=== PATIENT | female | born 1935 | race Caucasian/White ===

== ENCOUNTER 2017-04-14 15:15 | Emergency (ER) | payer OTHER, BC ==
--- NOTE | 2017-04-14 15:32 | EDPHY ---
H & P Stated Complaint: n/v decreased oral intake /dehydration intermittent x months Time Seen by Provider: 04/14/17 15:30 HPI/ROS: CHIEF COMPLAINT: Sent to ED for mild dehydration HISTORY OF PRESENT ILLNESS: The patient presents to the emergency department at the request of her primary care provider for evaluation of mild dehydration. The patient has had symptoms of intermittent nausea and decreased appetite for the past several months. She has been somewhat resistant to increasing her fluid intake secondary to complaints of ongoing nausea. The patient has had problems with insomnia as well. She recently was started on trazodone. The patient denies any history of fall, trauma, headache, chest pain, difficulty breathing or other concerns. The patient denies additional acute complaints of dysuria, cough or diarrhea REVIEW OF SYSTEMS: A comprehensive 10 point review of systems is otherwise negative aside from elements mentioned in the history of present illness. Source: Patient Exam Limitations: No limitations - Personal History Current Tetanus/Diphtheria Vaccine: Yes - Medical/Surgical History Hx Asthma: No Hx Chronic Respiratory Disease: No Hx Cardiac Disease: No Hx Renal Disease: No Hx Cirrhosis: No Hx Alcoholism: No Hx HIV/AIDS: No Hx Splenectomy or Spleen Trauma: No Other PMH: anxiety/depression - Social History Smoking Status: Never smoked - Physical Exam Exam: General Appearance: Elderly female, no acute distress Eyes: Pupils equal and round no pallor or injection ENT, Mouth: Dry mucous membranes Respiratory: There are no retractions, lungs are clear to auscultation Cardiovascular: Regular rate and rhythm Gastrointestinal: Abdomen is soft and nontender, no masses, bowel sounds normal Neurological: A&O, normal motor function, normal sensory exam, normal cranial nerves Skin: Warm and dry, no rashes Musculoskeletal: Slight kyphosis Extremities: symmetrical, full range of motion Constitutional: Initial Vital Signs Temperature (C) 36.6 C 04/14/17 15:26 Heart Rate 98 04/14/17 15:26 Respiratory Rate 18 04/14/17 15:26 Blood Pressure 149/99 H 04/14/17 15:26 O2 Sat (%) 92 04/14/17 15:26 O2 Delivery Mode Room Air Allergies/Adverse Reactions: No Known Allergies Allergy (Verified 04/14/17 15:24) Home Medications: Medication Instructions Recorded Aspirin 81mg (*) 04/14/17 B12/Levomefolate Calcium/B-6 12/05/17 Zoloft 100mg (*) 04/14/17 traZODone 04/14/17 Medical Decision Making ED Course/Re-evaluation: The patient presents the ED with nausea, decreased appetite and signs of moderate dehydration. She had an IV established. She received 2 L of normal saline. The patient is observed to have a normal neurologic and abdominal exam. The patient does have evidence of urinary tract infection. She received 1 g of IV ceftriaxone. The patient was re-evaluated at 6:00 p.m. and is currently feeling much better. She is tolerating p.o. without recurrent vomiting. The patient would like to be discharged home. She will be given a prescription for Keflex 500mg tid. Differential Diagnosis: Differential diagnosis considered includes UTI, dehydration, metabolic abnormality, anemia - Data Points Laboratory Results: Laboratory Results 04/14/17 16:00 04/14/17 16:00 04/14/17 04/14/17 04/14/17 16:49 16:00 16:00 WBC 5.29 10^3/uL 10^3/uL (3.80-9.50) RBC 4.76 10^6/uL 10^6/uL (4.18-5.33) Hgb 16.0 g/dL g/dL (12.6-16.3) Hct 45.0 % % (38.0-47.0) MCV 94.5 fL fL (81.5-99.8) MCH 33.6 pg pg (27.9-34.1) MCHC 35.6 g/dL g/dL (32.4-36.7) RDW 13.7 % % (11.5-15.2) Plt Count 234 10^3/uL 10^3/uL (150-400) MPV 8.1 fL L fL (8.7-11.7) Neut % (Auto) 62.4 % % (39.3-74.2) Lymph % (Auto) 23.6 % % (15.0-45.0) [place] % (Auto) 10.4 % % (4.5-13.0) Eos % (Auto) 1.9 % % (0.6-7.6) Baso % (Auto) 1.3 % % (0.3-1.7) Nucleat RBC Rel Count 0.0 % % (0.0-0.2) Absolute Neuts (auto) 3.30 10^3/uL 10^3/uL (1.70-6.50) Absolute Lymphs (auto) 1.25 10^3/uL 10^3/uL (1.00-3.00) Absolute Monos (auto) 0.55 10^3/uL 10^3/uL (0.30-0.80) Absolute Eos (auto) 0.10 10^3/uL 10^3/uL (0.03-0.40) Absolute Basos (auto) 0.07 10^3/uL 10^3/uL (0.02-0.10) Absolute Nucleated RBC 0.00 10^3/uL 10^3/uL (0-0.01) Immature Gran % 0.4 % % (0.0-1.1) Immature Gran # 0.02 10^3/uL 10^3/uL (0.00-0.10) Sodium 138 mEq/L mEq/L (134-144) Potassium 4.1 mEq/L mEq/L (3.5-5.2) Chloride 100 mEq/L mEq/L (97-110) Carbon Dioxide 26 mEq/l mEq/l (22-31) Anion Gap 12 mEq/L mEq/L (8-16) BUN 18 mg/dL mg/dL (7-23) Creatinine 0.8 mg/dL mg/dL (0.6-1.0) Estimated GFR > 60 Glucose 118 mg/dL H mg/dL (70-100) Calcium 9.9 mg/dL mg/dL (8.5-10.4) Urine Color YELLOW Urine Appearance HAZY Urine pH 6.0 (5.0-7.5) Ur Specific [place] 1.017 (1.002-1.030) Urine Protein NEGATIVE (NEGATIVE) Urine Ketones TRACE H (NEGATIVE) Urine Blood NEGATIVE (NEGATIVE) Urine Nitrate NEGATIVE (NEGATIVE) Urine Bilirubin NEGATIVE (NEGATIVE) Urine Urobilinogen NEGATIVE EU EU (0.2-1.0) Ur Leukocyte Esterase 2+ H (NEGATIVE) Urine RBC 1-3 /hpf /hpf (0-3) Urine WBC 15-25 /hpf H /hpf (0-3) Ur Epithelial Cells TRACE /lpf /lpf (NONE-1+) Urine Bacteria TRACE /hpf H /hpf (NONE SEEN) Urine Mucus TRACE /lpf /lpf (NONE-1+) Urine Glucose NEGATIVE (NEGATIVE) Medications Given: Discontinued Medications Sodium Chloride (Ns) 1,000 mls @ 0 mls/hr IV EDNOW ONE; Wide Open PRN Reason: Protocol Stop: 04/14/17 16:43 Last Admin: 04/14/17 17:00 Dose: 1,000 mls Ceftriaxone Sodium/Dextrose (Rocephin 1 Gm (Premix)) 50 mls @ 100 mls/hr IV EDNOW ONE PRN Reason: Protocol Stop: 04/14/17 18:29 Last Admin: 04/14/17 18:06 Dose: 50 mls Departure - Departure Disposition: Home, Routine, Self-Care Clinical Impression: Dehydration, Urinary tract bacterial infections Condition: Good Referrals: Harriet Dang MD [Primary Care Provider] - As per Instructions
[2017-04-14 16:06] LABS: % IMMATURE GRANULYOCYTES 0.4 % (0.0-1.1); ABSOLUTE IMMATURE GRANULOCYTES 0.02 10^3/uL (0.00-0.10); ADD DIFF? NO; ADD MORPH? NO; ADD SCAN? NO; ATYPICAL LYMPHOCYTE FLAG 0 (0-99); FRAGMENT RBC FLAG 0 (0-99); LEFT SHIFT FLG 0 (0-99); LIPEMIA HEMOLYSIS FLAG 90 (0-99); MEAN CELL HEMOGLOBIN 33.6 pg (27.9-34.1); MEAN CELL HEMOGLOBIN CONCENTR. 35.6 g/dL (32.4-36.7); MEAN CELL VOLUME 94.5 fL (81.5-99.8); MEAN PLATELET VOLUME 8.1 fL (8.7-11.7); PLATELET CLUMPS FLAG 0 (0-99); PLATELET COUNT 234 10^3/uL (150-400); RED BLOOD CELL COUNT 4.76 10^6/uL (4.18-5.33); RED CELL DISTRIBUTION WIDTH 13.7 % (11.5-15.2)
[2017-04-14 16:35] LABS: ANION GAP 12 mEq/L (8-16); CALCIUM 9.9 mg/dL (8.5-10.4); CARBON DIOXIDE 26 mEq/l (22-31); CHLORIDE 100 mEq/L (97-110); CREATININE 0.8 mg/dL (0.6-1.0); GLOMERULAR FILTRATION RATE > 60; GLUCOSE 118 mg/dL (70-100); POTASSIUM 4.1 mEq/L (3.5-5.2); SODIUM 138 mEq/L (134-144)
[2017-04-14] MEDS ORDERED: NS 1,000 ML IV ONE ×2 (16:42)
[2017-04-14 17:21] LABS: COLOR YELLOW; LEUKOCYTE ESTERASE,URINE 2+ (NEGATIVE); NITRITE,URINE NEGATIVE (NEGATIVE)
[2017-04-14 17:26] LABS: BACTERIA TRACE /hpf (NONE SEEN); MUCUS TRACE /lpf (NONE-1+); WBC,URINE 15-25 /hpf (0-3)
[2017-04-14 18:14] VITALS: RESP 16
[2017-04-14 19:09] VITALS: BP 168/86; PULSE 81; TEMP 96.8; O2SAT 94
== END 2017-04-14 19:21 | disposition home or self-care (01) ==
DX: E86.0 Dehydration (principal); N39.0 Urinary tract infection, site not specified; B96.89 Other specified bacterial agents as the cause of diseases classified elsewhere; E86.9 Volume depletion, unspecified; Z79.82 Long term (current) use of aspirin
CPT/HCPCS: 96361; 96365; 99284; J0696

== ENCOUNTER 2017-06-28 16:47 | Emergency (ER) | payer OTHER, BC ==
[2017-06-28 17:11] VITALS: TEMP 98.2
[2017-06-28] MEDS ORDERED: IPRATROPIUM/ALBUTEROL 3 ML DEYVIAL IH ONE (18:41)
--- NOTE | 2017-06-28 18:44 | EDPHY ---
H & P Stated Complaint: constipation and hypoxia Time Seen by Provider: 06/28/17 17:32 HPI/ROS: CHIEF COMPLAINT: Constipation HISTORY OF PRESENT ILLNESS: This is an 81-year-old female who comes with her daughters because of concern about constipation. She has not had a bowel movement for the last 5 days. She lives at the [facility] and they are aware of this. She has been given stool softeners and prune juice with no results. She denies nausea, vomiting, diarrhea, fever, and abdominal pain. She did have some rectal pain with bearing down earlier. The patient's main complaint today is that she can't hear out of her left ear. Apparently she underwent irrigation with no relief in her doctor's office last week. She is now using dubrox and there is plan to re-irrigate her ear later this week. She was noted to be hypoxic at triage with a pulse ox of 78% on room air. Repeat pulse ox was 86%. She wears 2 L nasal cannula at night. She has a long history of secondhand smoke exposure but is not aware of a formal diagnosis of COPD. Her medication list does include Symbicort, but she does not use this. She denies cough, shortness of breath, and chest pain. No recent fever. REVIEW OF SYSTEMS: A ten point review of systems was performed and is negative with the exception of the items mentioned in the HPI. Past medical history: Anxiety and depression Social history: She lives at the [facility]. She is . She is here with her two daughters, one of whom lives in [place], the other in [place]. General Appearance: Alert. Vital signs reviewed. Eyes: Pupils equal and round, no conjunctival injection, no discharge. Anicteric. ENT, Mouth: Mucous membranes are moist, no oropharyngeal erythema or edema. Neck: No lymphadenopathy, supple. Respiratory: Lungs with distant breath sounds, minimal air exchange. Cardiovascular: Regular rate and rhythm; no murmur, rub, or gallop. Gastrointestinal: Abdomen is soft and nontender, no masses or organomegaly, bowel sounds normal. Skin: Warm and dry, no rashes on exposed skin, normal color. Back: Nontender to palpation over the thoracolumbar spine. No CVAT. Mild kyphosis. Rectal: No external hemorrhoids noted. Moderately soft brown stool in the rectal vault.. Extremities: No lower extremity edema, no calf tenderness or swelling. Neurological: Alert and oriented. Moving all four extremities easily and equally. Psychiatric: Normal affect. - Personal History Current Tetanus/Diphtheria Vaccine: Yes - Medical/Surgical History Hx Asthma: No Hx Chronic Respiratory Disease: No Hx Cardiac Disease: No Hx Renal Disease: No Hx Cirrhosis: No Hx Alcoholism: No Hx HIV/AIDS: No Hx Splenectomy or Spleen Trauma: No Other PMH: anxiety/depression - Social History Smoking Status: Never smoked Constitutional: Initial Vital Signs Temperature (C) 36.8 C 06/28/17 17:07 Heart Rate 90 06/28/17 17:07 Respiratory Rate 18 06/28/17 17:07 Blood Pressure 162/87 H 06/28/17 17:07 O2 Sat (%) 78 L 06/28/17 17:07 O2 Delivery Mode Nasal Cannula O2 (L/minute) 2 Allergies/Adverse Reactions: No Known Allergies Allergy (Verified 06/28/17 17:06) Home Medications: Medication Instructions Recorded Aspirin 81mg (*) 04/14/17 B12/Levomefolate Calcium/B-6 04/14/17 Zoloft 100mg (*) 04/14/17 traZODone 04/14/17 Wellbutrin 100mg (*) 06/28/17 Medical Decision Making - Diagnostics Imaging: I viewed and interpreted images myself ED Course/Re-evaluation: 81-year-old with constipation. Stool palpable in the rectal vault. She was given an enema with good results; large bowel movement. She felt much better following that. The 2nd issue is her hypoxia. She has a Symbicort prescription but does not use this medication. On examination her breath sounds are distant with little air exchange. She received a DuoNeb with no improvement. Room air pulse ox 86 % following the DuoNeb. Chest x-ray NAPD. I discussed the situation with the patient and her daughters. It is their hope that she can have additional oxygen available so that she can use the oxygen she has at home 24 hr a day instead of at night only. Patient herself is not interested in hospitalization and declines my offer to stay overnight so that further evaluation can be done in the hopes of figuring out why she is hypoxic. Nursing staff was able to arrange for her to take home more oxygen. I spoke with the midlevel on-call for her primary care doctor, Dr. Dang, to apprise her of the situation in the hopes that this patient can be seen tomorrow or the next day. Danger signs that should prompt her to be re-evaluated immediately were reviewed. The patient and her family understand that it is not clear what is causing her to have a higher oxygen requirement. No signs or symptoms of pneumonia. I suspect a COPD exacerbation and we talked about treatments for this, including prednisone. At this point though they want to stay the course and follow up with her primary care provider. Nursing staff made an attempt irrigate her right ear but were unsuccessful in clearing the cerumen impaction. Differential Diagnosis: Shortness of breath including but not limited to pulmonary infectious process, COPD, asthma, pulmonary embolus and congestive heart failure. - Data Points Medications Given: Discontinued Medications Albuterol/Ipratropium (Duoneb) 3 ml IH EDNOW ONE Stop: 06/28/17 18:42 Last Admin: 06/28/17 18:46 Dose: 3 ml Departure - Departure Disposition: Home, Routine, Self-Care Clinical Impression: Hypoxia Constipation Qualifiers: Constipation type: unspecified constipation type Qualified Code(s): K59.00 - Constipation, unspecified Condition: Good Instructions: Constipation (ED), Cerumen Impaction (ED), Hypoxia (ED) Additional Instructions: You need to see Dr. Dang within the next 1-2 days. I spoke with her midlevel , who is aware of tonight's visit. Use the oxygen at all times, 2 L. If you are worse in any way--chest pain, worsening shortness of breath, fever, cough, new or concerning symptoms--please return immediately. Referrals: Harriet Dang MD [Primary Care Provider] - As per Instructions
[2017-06-28 21:07] VITALS: RESP 18
[2017-06-28 22:16] VITALS: BP 165/86; PULSE 84; O2SAT 96
== END 2017-06-28 22:37 | disposition home or self-care (01) ==
DX: K59.00 Constipation, unspecified (principal); R09.02 Hypoxemia; Z79.82 Long term (current) use of aspirin

== ENCOUNTER 2017-07-08 10:16 | Inpatient (IN) | payer OTHER, BC ==
[2017-07-08 10:40] LABS: PLATELET COUNT 250 10^3/uL (150-400)
--- NOTE | 2017-07-08 11:10 | EDPHY ---
HPI/HX/ROS/PE/MDM Narrative: CHIEF COMPLAINT: Weight loss, nausea and vomiting. HPI: This patient is an 81 year old female arriving with her daughter for evaluation of weight loss, difficulty eating, and vomiting. The patient has had difficulty with oral intake of fluids as well as lack of appetite since last summer. She has history of depression and anxiety, has not responded to medication so far. She generally gets IV hydration through [facility]. She has had considerable weight loss since summer as well. Yesterday, the patient vomited during an exercise class in the morning. Critical access hospital unable to evaluate her last night. This morning, her weight was 98 lbs, which is three pounds less than her prior low, so her daughter and staff at the [facility] recommended she present for evaluation. The patient currently denies any pain. No fever, shortness of breath, diarrhea, hematemesis , or other associated symptoms. REVIEW OF SYSTEMS: Aside from elements discussed in the HPI, a comprehensive 10-point review of systems was reviewed and is negative. PMH: Anxiety, Depression, Hypertension, UTI. SOCIAL HISTORY: Lives at the [facility]. Daughter at bedside. PHYSICAL EXAM: General:Patient is alert, in no acute distress. ENT:Eyes are normal to inspection. ENT inspection normal. Neck: Normal inspection. Full range of motion. Respiratory:No respiratory distress. Breath sounds normal bilaterally. Cardiovascular: Regular rate and rhythm. Strong peripheral pulses. Normal cap refill. Abdomen:The abdomen is nontender to palpation. There are no peritoneal signs. There are normal bowel sounds. Back: Normal to inspection. No tenderness to palpation. Skin: Normal color. No rash. Warm and dry. Extremities: Normal appearance. Full range of motion. Neuro: Oriented x3. Normal motor function. Normal sensory function. Psychiatric: Depressed affect. ED Course: Reviewed laboratory studies. Results unremarkable. Discussed admission for further medical management and weight stabilization. The patient does not want to be in the hospital, but her daughter is in favor of this to stabilize the patient's hydration and food intake. She is scheduled to follow up with her switchboard operator tomorrow in [place]. We will discuss options for local pulmonology followup. 12:[address] with [address] service. Dr. Montes accepts admission for failure to thrive. MDM: This patient presents with decreasing oral intake and weight, which I suspect is likely to do to psychiatric issues. I see no evidence of CVA, hyponatremia or renal failure. Her ADL needs are not being met in her current living situation and she will likely need a higher level of care after thorough medical evaluation. - Data Points Imaging Results: Imaging Impressions Abdomen X-Ray 07/08/17 11:12 Impression: No evidence for bowel obstruction. Laboratory Results: Laboratory Results 07/08/17 10:25 07/08/17 10:25 07/08/17 07/08/17 07/08/17 11:35 10:25 10:25 WBC 5.28 10^3/uL 10^3/uL (3.80-9.50) RBC 4.64 10^6/uL 10^6/uL (4.18-5.33) Hgb 15.3 g/dL g/dL (12.6-16.3) Hct 43.6 % % (38.0-47.0) MCV 94.0 fL fL (81.5-99.8) MCH 33.0 pg pg (27.9-34.1) MCHC 35.1 g/dL g/dL (32.4-36.7) RDW 13.6 % % (11.5-15.2) Plt Count 250 10^3/uL 10^3/uL (150-400) MPV 8.3 fL L fL (8.7-11.7) Neut % (Auto) 61.7 % % (39.3-74.2) Lymph % (Auto) 20.8 % % (15.0-45.0) [place] % (Auto) 11.4 % % (4.5-13.0) Eos % (Auto) 4.4 % % (0.6-7.6) Baso % (Auto) 1.1 % % (0.3-1.7) Nucleat RBC Rel Count 0.0 % % (0.0-0.2) Absolute Neuts (auto) 3.26 10^3/uL 10^3/uL (1.70-6.50) Absolute Lymphs (auto) 1.10 10^3/uL 10^3/uL (1.00-3.00) Absolute Monos (auto) 0.60 10^3/uL 10^3/uL (0.30-0.80) Absolute Eos (auto) 0.23 10^3/uL 10^3/uL (0.03-0.40) Absolute Basos (auto) 0.06 10^3/uL 10^3/uL (0.02-0.10) Absolute Nucleated RBC 0.00 10^3/uL 10^3/uL (0-0.01) Immature Gran % 0.6 % % (0.0-1.1) Immature Gran # 0.03 10^3/uL 10^3/uL (0.00-0.10) Sodium 141 mEq/L mEq/L (135-145) Potassium 3.7 mEq/L mEq/L (3.5-5.2) Chloride 103 mEq/L mEq/L (97-110) Carbon Dioxide 27 mEq/l mEq/l (22-31) Anion Gap 11 mEq/L mEq/L (8-16) BUN 16 mg/dL mg/dL (7-23) Creatinine 0.7 mg/dL mg/dL (0.6-1.0) Estimated GFR > 60 Glucose 104 mg/dL H mg/dL (70-100) Calcium 9.8 mg/dL mg/dL (8.5-10.4) Troponin I < 0.012 ng/mL ng/mL (0.000-0.034) Urine Color TANIA Urine Appearance HAZY Urine pH 5.0 (5.0-7.5) Ur Specific [place] 1.023 (1.002-1.030) Urine Protein NEGATIVE (NEGATIVE) Urine Ketones NEGATIVE (NEGATIVE) Urine Blood NEGATIVE (NEGATIVE) Urine Nitrate NEGATIVE (NEGATIVE) Urine Bilirubin NEGATIVE (NEGATIVE) Urine Urobilinogen NEGATIVE EU EU (0.2-1.0) Ur Leukocyte Esterase TRACE H (NEGATIVE) Urine RBC 1-3 /hpf /hpf (0-3) Urine WBC 3-5 /hpf H /hpf (0-3) Ur Epithelial Cells TRACE /lpf /lpf (NONE-1+) Urine Mucus 3+ /lpf H /lpf (NONE-1+) Urine Glucose NEGATIVE (NEGATIVE) Medications Given: Discontinued Medications Sodium Chloride (Ns) 1,000 mls @ 0 mls/hr IV ONCE ONE PRN Reason: Wide Open Stop: 07/08/17 11:41 Last Admin: 07/08/17 11:43 Dose: 1,000 mls General Time Seen by Provider: 07/08/17 10:17 Initial Vital Signs: Initial Vital Signs Temperature (C) 36.9 C 07/08/17 10:18 Heart Rate 74 07/08/17 10:18 Respiratory Rate 16 07/08/17 10:18 Blood Pressure 162/96 H 07/08/17 10:18 O2 Sat (%) 95 07/08/17 10:18 O2 Delivery Mode Nasal Cannula O2 (L/minute) 2 Allergies/Adverse Reactions: No Known Allergies Allergy (Verified 07/08/17 10:30) Home Medications: Medication Instructions Recorded Aspirin EC [Aspirin EC 81 mg (*)] 81 mg PO DAILY 04/14/17 Sertraline HCl [Zoloft 100mg (*)] 100 mg PO DAILY 04/14/17 Vitamin B Complex/Folic Acid 0.4 mg PO DAILY 04/14/17 [B-Complex Tablet] traZODone [traZODone 150MG (*)] 150 mg PO HS 04/14/17 buPROPion XL [Wellbutrin Xl] 150 mg PO DAILY 06/28/17 Acetaminophen [Tylenol 325mg (*)] 650 mg PO DAILY@07 07/08/17 Acetaminophen [Tylenol 325mg (*)] 650 mg PO Q4HRS PRN 07/08/17 Budesonide/Formoterol 160/4.5 1 puffs IH BID PRN 07/08/17 [Symbicort 160-4.5 Mcg Inh (*)] Calcium Citrate [Calcitrate] 200 mg PO BID 07/08/17 Carboxymethylcellulose 1% [Refresh 1 drop EACHEYE Q4HRS PRN 07/08/17 Celluvisc (*)] Cholecalciferol Vit D3 [Vitamin D3 5,000 units PO DAILY 07/08/17 (*)] Docusate Sodium [Colace 100 MG (*)] 100 mg PO BID PRN 07/08/17 Herbals/Supplements -Info Only 1 ea PO DAILY 07/08/17 Ondansetron HCl [Zofran] 4 mg PO Q8HRS PRN 07/08/17 Sodium Chloride [Byron Saline] 1 can NS DAILY PRN 07/08/17 Vayacog 1 each PO HS 07/08/17 amLODIPine BESYLATE [Norvasc 5 mg 7.5 mg PO DAILY 07/08/17 (*)] Departure - Departure Disposition: [facility] Inpatient Acute Condition: Fair Report Scribed for: Garcia Andino Report Scribed by: Soco Huynh Date of Report: 07/08/17 Time of Report: 11:10 Physician Review and Approval Statement: Portions of this note were transcribed by an ED scribe. I personally performed the history, physical exam, and medical decision making; and confirm the accuracy of the information in the transcribed note.
[2017-07-08] MEDS ORDERED: NS 1,000 ML IV ONE (11:40)
--- NOTE | 2017-07-08 13:20 | ASMTLACE ---
LOIS Acuity / Level of Answers: Yes Care: Did the patient have an inpatient admission? # of Emergency department Answers: 3-4 visits in the last 6 months Social determinants Answers: Mental health diagnosis (anxiety, depression, pers onality disorders, etc.) Score: 9 Date Signed: 07/08/2017 01:20 PM Electronically Signed By:Lacie Marr RN
[2017-07-08] MEDS ORDERED: BUDESONIDE/FORMOTEROL 160/4.5 60 PUFFS/MDI IH PRN (15:01)
[2017-07-08] MEDS ORDERED: DOCUSATE SODIUM 100 MG CAP PO PRN (15:01)
[2017-07-08] MEDS ORDERED: CARBOXYMETHYLCELLULOSE 1% 0.4 ML DROPERETTE EACHEYE PRN (15:01)
[2017-07-08] MEDS ORDERED: ONDANSETRON DISINTEGRATING 4 MG TAB PO PRN ×2 (15:19→18:58)
[2017-07-08] MEDS ORDERED: SODIUM CL NASAL 45 ML BTL EACHNARE PRN (15:20)
[2017-07-08] MEDS ORDERED: ACETAMINOPHEN 325 MG TAB PO PRN (18:58)
[2017-07-08] MEDS ORDERED: ONDANSETRON 4 MG/2 ML VIAL IVP PRN (18:58)
[2017-07-08] MEDS ORDERED: NS 1,000 ML IV SCH (19:00)
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
[2017-07-08] MEDS: CALCIUM CARBONATE 500 MG TAB PO SCH (20:57)
[2017-07-09] MEDS: CHOLECALCIFEROL VIT D3 2,000 UNITS TAB/CAP PO SCH (10:05)
[2017-07-09] MEDS: amLODIPine BESYLATE 5 MG TAB PO SCH (10:05)
[2017-07-09] MEDS: ASPIRIN EC 81 MG TAB PO SCH (10:05)
[2017-07-09] MEDS: VITAMIN B COMPLEX 1 EA CAP/TAB PO SCH (10:05)
[2017-07-09] MEDS: buPROPion XL 150 MG TAB PO SCH (10:06)
[2017-07-09] MEDS: SERTRALINE HCL 100 MG TAB PO SCH (10:06)
[2017-07-09] MEDS: CALCIUM CARBONATE 500 MG TAB PO SCH ×2 (10:07→22:06)
[2017-07-09] MEDS: ENOXAPARIN 40 MG/0.4 ML SYR SC SCH (10:07)
--- NOTE | 2017-07-09 16:18 | ASMTCASEMG ---
Living Arrangements What is your living Answers: Alone arrangement? Who do you live with? Type Of Residence What kind of residence do Answers: House you live in? Discharge Plan Comments Coordination Status Comments Notes: Pt is a 81 y/o female admitted for failure to thrive. CM met w/ pt and daughter for dispo planning and to provide emotional support. Pt has had 2 neuropsych evals in the past. Pt has been eating less and less over the course of 8 months. Therapies have been ordered. OT is recommending HC vs home w/ 24hr supervision vs SNF. Awaiting recommendation from PT. Pt and daughter agreed at this time that the best plan would be to have a HC agency that has a focus on behavioral health. Pt reports that this is her second bout of depression. Pt reports that the first time she was depressed was when her . Pt reports that the depression eventually went away. Pt reports that this time around the depression has been around for 3 years. Pt endorses anxiety. Pt reports that she has a therapist and caregivers through [facility]. Pt and daughter are agreeable to having a referral to [facility]. CM to follow. Plan: [facility]; PT, OT, RN Date Signed: 07/09/2017 04:17 PM Electronically Signed By:GUALBERTO Lau
--- NOTE | 2017-07-09 19:21 | HOSPPROG ---
Hospitalist Progress Note Assessment/Plan: DIAGNOSES: # failure to thrive, acute on chronic # acute dehydration # significant anorexia with weight loss, primarily due to depression; moderately severe protein calorie malnutrition # anorexia is also affecting her fluid intake and she frequently is receiving outpatient IV fluids for hydration # ongoing uncontrolled depression despite 3 anti depressant medications at high doses # significant deconditioning with gait instability # insomnia is it much improved on high-dose trazodone I had an initial visit with the patient this morning to review her symptoms and examination and lab tests. Following this I had a 45 min visit with the patient and her daughter and her son-in-law at the bedside reviewing her day today, as well as the findings of her neuropsychiatric assessment of which we now records, and various treatment options available for all of her issues here. Total of more than 1 hr spent today due visits, with the significant majority of that spent in discussion and counseling as above. PLANS: -at this point will stop IV fluids and see how well she heart hydrate herself orally -continue to try and increase ambulation as able, still on fall risk precautions -follow her oral intake of food -plan on potential discharge from hospital if she is stable on her feet tomorrow -we discussed in great detail the pros and cons of trying to change her antidepressants with her outpatient psychiatrist here [facility] as opposed to going to an inpatient geriatric psychiatric unit. They will spend this evening and tomorrow morning considering these options and see if they have a decision about wanting to go 1 direction or another. If they are interested in an inpatient stay will make contact to see how close we are being able to get her to a room at 1 of those facilities. -strongly recommended at her assisted living apartment scheduled beverage intakes, 1 12 or more oz glass with each meal and 12 or more ends class with each medication administration and 1 at bedtime; these would be supervised by her nursing and other child support officer at the apartment complex -strongly recommend that she be given meals without having to choose from a menu or options and just have her food placed in front of her as it seems clear that her need to make a choice significantly interferes with her intake of food -strongly intake scheduled intake of protein calorie supplements that could be in the way of shakes, Ensure, or protein calorie Bar sh -strongly recommend that she begin daily exercise in a supervised scheduled format. This ideally would come initially through a pulmonary rehabilitation Clinic in the outpatient setting though she would need to be referred for this by highway maintenance crew worker. We will be referring her to the local pulmonology group here as it is cumbersome for her to trying get to [facility] at this point. - SUBJECTIVE: She feels slightly better in terms of ability to ambulate today, did eat better. Notably importantly her daughter mentions that whenever food is just placed in front of her she does eat much better and if she has to make a choice from a menu or other choice about what she will eat she is a lot less likely to eat much. Notably at her assisting living apartment she is eating in the facility dining [place] where she must choose all of her food from a menu at all of her meals. She does not keep food in her part min to eat and probably would not make choices but to eat anything based on what is described here. All of this is in line with what is seen in terms of her depression and executive functioning issues as described below from a neuropsychiatric testing. I did review today the result of her neuropsychiatric testing which we have available here now. She does very well cognitively and has had really no significant cognitive decline since her last test 4 years ago. Some mild executive function issues. However she clearly has ongoing and severe depression described as a agitated depression with some behavioral but no psychotic features. There is no indication that the medicines she is taking in her helping her in any will way other than some improvement in sleep with the trazodone. OBJECTIVE Vitals reviewed: Stable without fever Exam: alert oriented, depressed affect, significantly decreased psychomotor activity skin warm dry color ok resps not labored lungs clear BSs heart regular abd soft nondistended nontender, bowel sounds present limbs warm, no edema iv site ok Lab data: Vitamin-D levels in good range TSH normal Liver panel normal Her albumin and protein levels are low consistent with her poor intake of food and weight loss Objective: Vital Signs Temp Pulse Resp BP Pulse Ox 36.8 C 84 19 131/80 H 97 07/09/17 16:00 07/09/17 16:00 07/09/17 16:00 07/09/17 16:00 07/09/17 16:00 Laboratory Results 07/09/17 03:42 07/08/17 07/09/17 07/10/17 06:59 06:59 06:59 Intake Total 2402 2250 Output Total 900 250 Balance 1502 2000 ICD10 Worksheet Patient Problems: Problems Problem Status Onset Constipation Acute Hypoxia Acute
[2017-07-10] MEDS: ENOXAPARIN 40 MG/0.4 ML SYR SC SCH (09:11)
[2017-07-10] MEDS: amLODIPine BESYLATE 5 MG TAB PO SCH (09:12)
[2017-07-10] MEDS: SERTRALINE HCL 100 MG TAB PO SCH (09:14)
[2017-07-10] MEDS: VITAMIN B COMPLEX 1 EA CAP/TAB PO SCH (09:16)
[2017-07-10] MEDS: buPROPion XL 150 MG TAB PO SCH (09:16)
[2017-07-10] MEDS: ASPIRIN EC 81 MG TAB PO SCH (09:16)
[2017-07-10] MEDS: CHOLECALCIFEROL VIT D3 2,000 UNITS TAB/CAP PO SCH (09:24)
[2017-07-10] MEDS: CALCIUM CARBONATE 500 MG TAB PO SCH (09:25)
--- NOTE | 2017-07-10 10:29 | PDMN ---
Medical Necessity Medical necessity: Change to IP, as of 07/09/17, per MD; los >2 mn for ongoing management of ongoing uncontrolled depression, significant deconditioning w/ gait instability, failure to thrive, acute dehydration & significant anorexia; admit for further monitoring, therapies & dc planning/possible inpatient [facility] placement; hx depression, anorexia, insomnia & COPD; per progress note & order; 07/09/17
--- NOTE | 2017-07-10 10:38 | PDDCSUM ---
Discharge Summary Discharge Summary: DISCHARGE DIAGNOSES: # failure to thrive, acute on chronic; underlying depression and malnutrition other route causes # acute dehydration due to poor intake, underlying depression in significant factor in her lack of thirst # significant anorexia with protein calorie malnutrition(moderately severe) and weight loss, primarily due to depression malnutrition # ongoing uncontrolled major agitated depression despite current use of 3 anti depressant medications at high doses; # significant deconditioning with gait instability # insomnia due to above, somewhat improved on high-dose trazodone but still an ongoing issue HOSPITAL COURSE SUMMARY: This patient who is quite disabled from her chronic depression, which is resulted in severe anorexia and lack of thirst, comes in with failure to thrive , weakness, dehydration. She has been getting weekly IV fluid infusions in the outpatient setting due to her lack of fluid intake. The we find her here to have evidence of protein calorie malnutrition with weight loss and low protein and albumin levels. Her low protein and low albumin levels were measured even during a somewhat dehydrated state. She also engages in extremely minimal physical activity and is becoming very deconditioned and weakened. Her main therapy here was rehydration and physical occupational therapy. She is currently well hydrated and is able to ambulate safely, notably better than as she arrived here. She is safe for discharge from the hospital. However that this situation clearly will continue and will continue to get worse and less significant changes are made. She is on 3 high-dose simultaneous antidepressants for her of easily in effective at treating her depression, and has had other antidepressants used in the past. It will be very important for her to have continuing efforts to find more effective antidepressant medication, or it may be worth considering ECT therapy. Discussed this with the patient and her family in detail. We discussed the possibility of an inpatient geriatric psych hospital stay to try and facilitate medication changes but the patient is not interested in that at this time. As she is not suicidal I think it is reasonable to continue with her outpatient psychiatrist. I have read a copy of her neuropsychiatric testing which was done 2 weeks ago and this was very informative. If it notes as I observe here that the patient has some executive functioning issues in the cognitive real, but that overall she does well cognitively in her cognition abilities have not changed significantly in the past 4 years when she had prior testing. However the test does note that she has severe agitated depression that is not being adequately managed by her current medications. Notably relating to her depression, low motivation, and executive functioning issues, the daughter has observed that the patient does much better if someone places a meal in front of her, and will often eat more that way. However the patient is in an assisted living apartment complex where she eats in the dining [place] and must order from a menu for each meal. This is probably interfering to some degree with her nutritional intake and I did meet with the family and the staff from her assisted living apartment and we talked about trying to structure a program with the patient did not have to choose what food she would eat with a meal. Also will be very helpful to work with the snack bar attendant and have some supervision over how much she is eating. Scheduled protein and calorie supplements should be used in a supervised setting in a fashion similar to providing medications for the patient. Similarly I have recommended a scheduled supervised intake of fluids with each meal and with each medication administration during the day and possibly at other times as well. We also talked at length about the impact of exercise on her depression, her appetite and thirst, and her physical health, as well as her fall risks with injury. In addition the patient has chronic lung disease and has in the past work with doctors at [facility]. They have not been there for some years and would like to establish with a ship mate locally. I have requested that the patient and family make an appointment at [facility] Pulmonology. I think it would be quite helpful with the patient is referred from there to the pulmonary rehabilitation clinic as well. PENDING TEST RESULTS: None MEDICATION CHANGES: None Is recommended that she continue visitations with her psychiatrist and consider changes to her antidepressant regimen, question of whether ECT would be helpful if there is no response to new medications FOLLOW-UP PLAN: The addition of 24/7 home care, to include occupational physical therapy at this time I recommended to patient, family and staff at her assisted living facility, that she have structured scheduled intake of significant fluid volumes orally, with each meal and with each medication administration and at bedtime, in order to be able to orally hydrate her adequately. Have also recommended that they serve her her meals at the dining [place] without her having to choose the meal from a menu, as the patient commonly has difficulty choosing foods and then difficulty eating what she has chosen but seems to eat better when she is given food without her having to choose. Have also recommended that she get daily intake of some protein calorie supplement either in the form of a shake or smoothie or a bar, and this should be scheduled supplement given like a medication and its intake should be supervised. Have recommended that they also engage with a snack bar attendant to help. Have recommended that they make an appointment at [facility] Pulmonology for ongoing care of her chronic lung disease, and also recommend that she get referral to Pulmonary Rehabilitation Clinic to help with getting her started on daily exercise. [facility] her on some type of scheduled daily exercise regimen at this time pending that consultation. Have recommended that they continue to work with her psychiatrist and consider changes in her antidepressant regimen Greater than 35 minutes bedside and care coordination time today
--- NOTE | 2017-07-10 10:43 | PDIAF ---
- Diagnosis Diagnosis: Depression, anorexia and lack there is, protein calorie malnutrition , decon - Medication Management Discharge Medications: Medications to Continue on Transfer Aspirin EC [Aspirin EC 81 mg (*)] 81 mg PO DAILY 04/14/17 [Last Taken Unknown] Sertraline HCl [Zoloft 100mg (*)] 100 mg PO DAILY 04/14/17 [Last Taken Unknown] Vitamin B Complex/Folic Acid [B-Complex Tablet] 0.4 mg PO DAILY 04/14/17 [Last Taken Unknown] traZODone [traZODone 150MG (*)] 150 mg PO HS 04/14/17 [Last Taken Unknown] buPROPion XL [Wellbutrin 150mg XL] 150 mg PO DAILY 06/28/17 [Last Taken Unknown] Acetaminophen [Tylenol 325mg (*)] 650 mg PO DAILY@07 07/08/17 [Last Taken Unknown] Acetaminophen [Tylenol 325mg (*)] 650 mg PO Q4HRS PRN 07/08/17 [Last Taken Unknown] Budesonide/Formoterol 160/4.5 [Symbicort 160-4.5 Mcg Inh (*)] 1 puffs IH BID PRN 07/08/17 [Last Taken Unknown] Calcium Citrate [Calcitrate] 200 mg PO BID 07/08/17 [Last Taken Unknown] Carboxymethylcellulose 1% [Refresh Celluvisc (*)] 1 drop EACHEYE Q4HRS PRN 07/08 [Last Taken Unknown] Cholecalciferol Vit D3 [Vitamin D3 (*)] 5,000 units PO DAILY 07/08/17 [Last Taken Unknown] Docusate Sodium [Colace 100 MG (*)] 100 mg PO BID PRN 07/08/17 [Last Taken Unknown] Herbals/Supplements -Info Only 1 ea PO DAILY 07/08/17 [Last Taken Unknown] Ondansetron HCl [Zofran] 4 mg PO Q8HRS PRN 07/08/17 [Last Taken Unknown] Sodium Chloride [[place] Saline] 1 can NS DAILY PRN 07/08/17 [Last Taken Unknown] Vayacog 1 each PO HS 07/08/17 [Last Taken Unknown] amLODIPine BESYLATE [Norvasc 5 mg (*)] 7.5 mg PO DAILY 07/08/17 [Last Taken Unknown] Discharge Medications: Refer to the Discharge Home Medication list for PRN reason. - Orders Services needed: Home Care, Registered Nurse, Certified Table And Desk Finisher, Physical Therapy, Occupational Therapy Home Care Face to Face: I certify that this patient was under my care and that I had the required [id number] encounter meeting the encounter requirements on the discharge day. My findings support the fact that the patient is homebound as defined in Home Care Face to Face Continued: CMS Chapter 7 Medicare Benefits Manual 30.1.1 , The condition of the patient is such that there exists a normal inability to leave home and consequently, leaving home would require a considerable and taxing effort. Diet Recommendation: no restrictions on diet Diet Texture: Regular Texture Diet, Thin Liquids, Meds Whole in Puree - Follow Up Care Current Providers and Referrals: Harriet Dang MD [Primary Care Provider] - As per Instructions
[2017-07-10 13:24] VITALS: TEMP 98
[2017-07-10 15:19] VITALS: BP 132/84; PULSE 86; RESP 19; O2SAT 95
== END 2017-07-10 17:42 | disposition home health service (06) | DRG 640 ==
LOC: EDUNIT# → OBSVTOIN 13:01 → INTOOBSV 13:01 → F2W 15:15 → OBSVTOIN 07-09 19:30
PROVIDERS: ADMIT Internal Medicine; ATTEND Internal Medicine
DX: E86.0 Dehydration (principal); E43 Unspecified severe protein-calorie malnutrition; F32.9 Major depressive disorder, single episode, unspecified; G47.00 Insomnia, unspecified; I10 Essential (primary) hypertension; R62.7 Adult failure to thrive
CPT/HCPCS: 92610-GN; 97161-GP; 97165-GO; G0378; G8978-GP-CI; G8979-GP-CI; G8987-GO-CK; G8988-GO-CH; G8996-GN-CH; G8997-GN-CH; G8998-GN-CH; J1650

== ENCOUNTER 2017-07-15 13:01 | Emergency (ER) | payer OTHER, BC ==
[2017-07-15 14:05] LABS: PLATELET COUNT 232 10^3/uL (150-400)
--- NOTE | 2017-07-15 14:07 | EDPHY ---
H & P Time Seen by Provider: 07/15/17 13:48 HPI/ROS: CHIEF COMPLAINT: Elevated D-dimer HISTORY OF PRESENT ILLNESS: 81-year-old female with oxygen dependent COPD, on home oxygen, presents with an elevated D-dimer. She was hospitalized from through 07/10/2017 for severe depression and anorexia. She was discharged home on supplemental oxygen. She followed up with her account executive healthcare yesterday. Outpatient D-dimer through the lab at [facility] was apparently elevated. She was sent here for further evaluation. She has had a mild cough for a couple of days, but otherwise no change in her usual shortness of breath. No chest pain, sore throat or rhinorrhea. REVIEW OF SYSTEMS: Constitutional: No fever, no chills Eyes: No visual changes ENT: No sore throat Cardiac: No chest pain Gastrointestinal: no vomiting, no abdominal pain Genitourinary: no dysuria Musculoskeletal: No leg pain or swelling Skin: No rash Neurological: No headache, no weakness Psychiatric: depression Past Medical/Surgical History: Depression Anorexia Chronic lung disease Social History: Lives in a [facility] Smoking Status: Never smoked Physical Exam: General Appearance: Alert, looks at me when I talk, but limited verbal response , nontoxic Eyes: Pupils equal and round, no conjunctival pallor or injection ENT, Mouth: Mucous membranes moist Neck: Normal inspection Respiratory: Lungs are clear to auscultation Cardiovascular: Regular rate and rhythm Gastrointestinal: Abdomen is soft and nontender Neurological: A&O, nonfocal exam Skin: Warm and dry, no rash Extremities: Nontender, no pedal edema Psychiatric: Flat affect Constitutional: Initial Vital Signs Temperature (C) 37 C 07/15/17 13:57 Heart Rate 84 07/15/17 13:57 Respiratory Rate 16 07/15/17 13:57 Blood Pressure 160/80 H 07/15/17 13:57 O2 Sat (%) 89 L 07/15/17 13:57 O2 Delivery Mode Nasal Cannula O2 (L/minute) 2 Allergies/Adverse Reactions: No Known Allergies Allergy (Verified 07/08/17 10:30) Home Medications: Medication Instructions Recorded Aspirin EC [Aspirin EC 81 mg (*)] 81 mg PO DAILY 04/14/17 Sertraline HCl [Zoloft 100mg (*)] 100 mg PO DAILY 04/14/17 Vitamin B Complex/Folic Acid 0.4 mg PO DAILY 04/14/17 [B-Complex Tablet] traZODone [traZODone 150MG (*)] 150 mg PO HS 04/14/17 buPROPion XL [Wellbutrin 150mg XL] 150 mg PO DAILY 06/28/17 Acetaminophen [Tylenol 325mg (*)] 650 mg PO DAILY@07 07/08/17 Acetaminophen [Tylenol 325mg (*)] 650 mg PO Q4HRS PRN 07/08/17 Budesonide/Formoterol 160/4.5 1 puffs IH BID PRN 07/08/17 [Symbicort 160-4.5 Mcg Inh (*)] Calcium Citrate [Calcitrate] 200 mg PO BID 07/08/17 Carboxymethylcellulose 1% [Refresh 1 drop EACHEYE Q4HRS PRN 07/08/17 Celluvisc (*)] Cholecalciferol Vit D3 [Vitamin D3 5,000 units PO DAILY 07/08/17 (*)] Docusate Sodium [Colace 100 MG (*)] 100 mg PO BID PRN 07/08/17 Herbals/Supplements -Info Only 1 ea PO DAILY 07/08/17 Ondansetron HCl [Zofran] 4 mg PO Q8HRS PRN 07/08/17 Sodium Chloride [[place] Saline] 1 can NS DAILY PRN 07/08/17 Vayacog 1 each PO HS 07/08/17 amLODIPine BESYLATE [Norvasc 5 mg 7.5 mg PO DAILY 07/08/17 (*)] Medical Decision Making - Diagnostics Imaging Results: Imaging Impressions Chest/Thorax CTA 07/15/17 14:02 Impression: 1. No evidence of pulmonary thromboembolic disease. 2. Bronchitis/airways disease, with associated air trapping. 3. Calcified coronary plaque. 4. Small hiatal hernia. Findings discussed with Emergency Department physician, Holly Enrique M.D., on July 15, 2017 at 1520. ED Course/Re-evaluation: This patient presents with an elevated D-dimer. She was sent here for CT pulmonary angiogram. She has a mild cough, but denies increasing shortness of breath or chest pain. Clinically she does not have pneumonia. CT pulmonary angiogram results discussed with the patient and her daughter. No evidence of pulmonary embolism or pneumonia. Pt stable and asymptomatic throughout. She will follow up with her account executive healthcare. Differential Diagnosis: Differential diagnosis includes though it is not limited to pneumonia, pneumothorax, pulmonary embolism, aortic dissection, pericarditis, acute coronary syndrome. - Data Points Laboratory Results: Laboratory Results 07/15/17 13:10 07/15/17 13:10 07/15/17 07/15/17 07/15/17 13:10 13:10 13:10 WBC 5.27 10^3/uL 10^3/uL (3.80-9.50) RBC 4.86 10^6/uL 10^6/uL (4.18-5.33) Hgb 15.9 g/dL g/dL (12.6-16.3) Hct 46.8 % % (38.0-47.0) MCV 96.3 fL fL (81.5-99.8) MCH 32.7 pg pg (27.9-34.1) MCHC 34.0 g/dL g/dL (32.4-36.7) RDW 13.2 % % (11.5-15.2) Plt Count 232 10^3/uL 10^3/uL (150-400) MPV 9.0 fL fL (8.7-11.7) Neut % (Auto) 60.1 % % (39.3-74.2) Lymph % (Auto) 19.2 % % (15.0-45.0) [place] % (Auto) 14.0 % H % (4.5-13.0) Eos % (Auto) 4.6 % % (0.6-7.6) Baso % (Auto) 1.3 % % (0.3-1.7) Nucleat RBC Rel Count 0.0 % % (0.0-0.2) Absolute Neuts (auto) 3.17 10^3/uL 10^3/uL (1.70-6.50) Absolute Lymphs (auto) 1.01 10^3/uL 10^3/uL (1.00-3.00) Absolute Monos (auto) 0.74 10^3/uL 10^3/uL (0.30-0.80) Absolute Eos (auto) 0.24 10^3/uL 10^3/uL (0.03-0.40) Absolute Basos (auto) 0.07 10^3/uL 10^3/uL (0.02-0.10) Absolute Nucleated RBC 0.00 10^3/uL 10^3/uL (0-0.01) Immature Gran % 0.8 % % (0.0-1.1) Immature Gran # 0.04 10^3/uL 10^3/uL (0.00-0.10) D-Dimer 1.19 ug/mLFEU H ug/mLFEU (0.00-0.50) Sodium 138 mEq/L mEq/L (135-145) Potassium 4.5 mEq/L mEq/L (3.5-5.2) Chloride 94 mEq/L L mEq/L (97-110) Carbon Dioxide 35 mEq/l H mEq/l (22-31) Anion Gap 9 mEq/L mEq/L (8-16) BUN 21 mg/dL mg/dL (7-23) Creatinine 0.6 mg/dL mg/dL (0.6-1.0) Estimated GFR > 60 Glucose 79 mg/dL mg/dL (70-100) Calcium 9.7 mg/dL mg/dL (8.5-10.4) NT-Pro-B Natriuret Pep 182 pg/mL pg/mL (0-450) Departure - Departure Disposition: Home, Routine, Self-Care Clinical Impression: Chronic lung disease Condition: Good Instructions: Chronic Lung Disease and Infection Prevention (ED) Additional Instructions: This CT scan of the chest reveals no evidence of pulmonary embolism. Follow-up with your physician at [facility]. Referrals: Patient,NotPresent [Unknown] - As per Instructions
[2017-07-15] MEDS ORDERED: IOPAMIDOL (ISOVUE 370) 100 ML BTL IV ONE (14:47)
[2017-07-15 15:29] VITALS: BP 159/92; PULSE 80; RESP 18; TEMP 98.6; O2SAT 98
== END 2017-07-15 15:51 | disposition home or self-care (01) ==
LOC: EDUNIT#
DX: J44.9 Chronic obstructive pulmonary disease, unspecified (principal); Z79.82 Long term (current) use of aspirin
CPT/HCPCS: 71275; 99285; Q9967

== ENCOUNTER 2018-03-02 09:08 | Inpatient (IN) | payer OTHER, BC ==
--- NOTE | 2018-03-02 09:24 | EDPHY ---
H & P Time Seen by Provider: 03/02/18 09:24 HPI/ROS: Chief complaint. Fall HPI. 82-year-old female here by EMS after mechanical fall. She tells me left hip pain and right knee pain after fall. She did not strike her head or lose consciousness. No chest discomfort or trouble breathing. No abdominal pain. No back pain. Injury occurred this morning just prior to arrival ROS 10 systems were reviewed and negative with the exception of the elements mentioned in the history of present illness Past Medical/Surgical History: Past medical history significant for anxiety/depression, hypertension, UTI, OCD , hip pain, anorexia Social History: , nonsmoker, no alcohol Smoking Status: Never smoked Physical Exam: General Appearance: Alert well-developed female moderate distress vital signs are stable Eyes: Pupils equal and round no pallor or injection. ENT, Mouth: Mucous membranes are moist. Respiratory: There are no retractions, lungs are clear to auscultation. Cardiovascular: Regular rate and rhythm. Gastrointestinal: Abdomen is soft and nontender, no masses, bowel sounds normal. Neurological: Awake and alert, sensory and motor exams grossly normal. Skin: Warm and dry, no rashes. Musculoskeletal: Neck is supple nontender. Extremities painful range of motion left hip without obvious deformity. Tenderness to the right knee without deformity Psychiatric: Patient is oriented X 3, there is no agitation. Constitutional: Initial Vital Signs Temperature (C) 37.0 C 03/02/18 09:16 Heart Rate 88 03/02/18 09:16 Respiratory Rate 18 03/02/18 09:16 Blood Pressure 128/68 H 03/02/18 09:16 O2 Sat (%) 96 03/02/18 09:16 O2 Delivery Mode Nasal Cannula O2 (L/minute) 2 Allergies/Adverse Reactions: No Known Allergies Allergy (Verified 07/08/17 10:30) Home Medications: Medication Instructions Recorded Aspirin EC [Aspirin EC 81 mg (*)] 81 mg PO DAILY 04/14/17 Sertraline HCl [Zoloft 100mg (*)] 100 mg PO DAILY 04/14/17 Vitamin B Complex/Folic Acid 0.4 mg PO DAILY 04/14/17 [B-Complex Tablet] traZODone [traZODone 150MG (*)] 150 mg PO HS 04/14/17 buPROPion XL [Wellbutrin 150mg XL] 150 mg PO DAILY 06/28/17 Acetaminophen [Tylenol 325mg (*)] 650 mg PO DAILY@07 07/08/17 Acetaminophen [Tylenol 325mg (*)] 650 mg PO Q4HRS PRN 07/08/17 Budesonide/Formoterol 160/4.5 1 puffs IH BID PRN 07/08/17 [Symbicort 160-4.5 Mcg Inh (*)] Calcium Citrate [Calcitrate] 200 mg PO BID 07/08/17 Carboxymethylcellulose 1% [Refresh 1 drop EACHEYE Q4HRS PRN 07/08/17 Celluvisc (*)] Cholecalciferol Vit D3 [Vitamin D3 5,000 units PO DAILY 07/08/17 (*)] Docusate Sodium [Colace 100 MG (*)] 100 mg PO BID PRN 07/08/17 Herbals/Supplements -Info Only 1 ea PO DAILY 07/08/17 Ondansetron HCl [Zofran] 4 mg PO Q8HRS PRN 07/08/17 Sodium Chloride [[place] Saline] 1 can NS DAILY PRN 07/08/17 Vayacog 1 each PO HS 07/08/17 amLODIPine BESYLATE [Norvasc 5 mg 7.5 mg PO DAILY 07/08/17 (*)] Medical Decision Making - Diagnostics Imaging Results: Imaging Impressions Knee X-Ray 03/02/18 09:20 Impression: 1. No acute fracture or effusion. 2. 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 Procedures: IV normal saline. Morphine for pain ED Course/Re-evaluation: Re-evaluation at 10:00 a.m.. Patient is pain is controlled. The patient and family and I discussed imaging and lab results. We discussed treatment plan including recommendation for admission and surgery. They expressed understanding and agreement I consulted discussed the case with Dr. Aguilera, hospitalist, who agrees to the admission I consulted discussed the case with Dr. Tabor for orthopedics who will see the patient in the hospital Differential Diagnosis: I considered hip fracture, dislocation, contusion - Data Points Laboratory Results: Laboratory Results 03/02/18 09:00 03/02/18 09:00 03/02/18 03/02/18 03/02/18 09:00 09:00 09:00 WBC 14.04 10^3/uL H 10^3/uL (3.80-9.50) RBC 4.60 10^6/uL 10^6/uL (4.18-5.33) Hgb 14.5 g/dL g/dL (12.6-16.3) Hct 42.5 % % (38.0-47.0) MCV 92.4 fL fL (81.5-99.8) MCH 31.5 pg pg (27.9-34.1) MCHC 34.1 g/dL g/dL (32.4-36.7) RDW 13.5 % % (11.5-15.2) Plt Count 330 10^3/uL 10^3/uL (150-400) MPV 8.7 fL fL (8.7-11.7) Neut % (Auto) 89.4 % H % (39.3-74.2) Lymph % (Auto) 4.1 % L % (15.0-45.0) [place] % (Auto) 5.1 % % (4.5-13.0) Eos % (Auto) 0.0 % L % (0.6-7.6) Baso % (Auto) 0.2 % L % (0.3-1.7) Nucleat RBC Rel Count 0.0 % % (0.0-0.2) Absolute Neuts (auto) 12.55 10^3/uL H 10^3/uL (1.70-6.50) Absolute Lymphs (auto) 0.58 10^3/uL L 10^3/uL (1.00-3.00) Absolute Monos (auto) 0.72 10^3/uL 10^3/uL (0.30-0.80) Absolute Eos (auto) 0.00 10^3/uL L 10^3/uL (0.03-0.40) Absolute Basos (auto) 0.03 10^3/uL 10^3/uL (0.02-0.10) Absolute Nucleated RBC 0.00 10^3/uL 10^3/uL (0-0.01) Immature Gran % 1.2 % H % (0.0-1.1) Immature Gran # 0.17 10^3/uL H 10^3/uL (0.00-0.10) RBC/WBC/PLT Morphology TNP Platelet Estimate TNP PT 13.5 SEC SEC (12.0-15.0) INR 1.01 (0.83-1.16) APTT 26.5 SEC SEC (23.0-38.0) Sodium 135 mEq/L mEq/L (135-145) Potassium 4.2 mEq/L mEq/L (3.3-5.0) Chloride 96 mEq/L L mEq/L (97-110) Carbon Dioxide 31 mEq/l mEq/l (22-31) Anion Gap 8 mEq/L mEq/L (6-14) BUN 25 mg/dL H mg/dL (7-23) Creatinine 0.5 mg/dL L mg/dL (0.6-1.0) Estimated GFR > 60 Glucose 128 mg/dL H mg/dL (70-100) Calcium 9.6 mg/dL mg/dL (8.5-10.4) Medications Given: Discontinued Medications Morphine Sulfate (Morphine) 4 mg IVP EDNOW ONE Stop: 03/02/18 09:33 Last Admin: 03/02/18 09:42 Dose: 4 mg Departure - Departure Disposition: [facility] ([place], [place]) Inpatient Acute Clinical Impression: Fracture of femoral neck, left, closed Qualifiers: Encounter type: initial encounter Qualified Code(s): S72.002A - Fracture of unspecified part of neck of left femur, initial encounter for closed fracture Condition: Fair Referrals: Harriet Dang MD [Primary Care Provider] - As per Instructions
[2018-03-02 09:39] LABS: PLATELET COUNT 330 10^3/uL (150-400)
[2018-03-02 09:45] LABS: INR 1.01 (0.83-1.16); PROTIME(PATIENT) 13.5 SEC (12.0-15.0)
[2018-03-02] MEDS ORDERED: NS 1,000 ML IV ONE (09:58)
[2018-03-02] MEDS ORDERED: ONDANSETRON 4 MG/2 ML VIAL IVP PRN ×2 (11:25→16:10)
[2018-03-02] MEDS ORDERED: HYDROmorphONE/DILAUDID 1 MG/ML INJ IVP PRN (11:25)
[2018-03-02] MEDS ORDERED: ONDANSETRON DISINTEGRATING 4 MG TAB PO PRN (11:25)
[2018-03-02] MEDS ORDERED: HYDROmorphONE/DILAUDID 2 MG TAB PO PRN (11:25)
[2018-03-02] MEDS ORDERED: NS 1,000 ML IV SCH (11:30)
--- NOTE | 2018-03-02 13:17 | SOAPPROG ---
SOAP Progress Note Assessment/Plan: Assessment: Zee is a pleasant 82 year old female who presented to the ER today after she lost her footing and fell in her bathroom. She had immediate left hip pain. She presented with left hip and bilateral knee pain. She had radiographs of the right knee which were negative and left knee which showed femoral neck fracture. She denies any head injury. She is otherwise healthy with history of HTN. PE: Skin is clean and dry. Leg is shortened. + log roll. Pain with gentle rotation of the hip. NV intact LLE. Upon evaluation of the left knee there is no palpable effusion. ROM not tested due to hip fracture Plan: We will go ahead and get an x-ray of her left knee to ensure no internal derangement. Risks, benefits, alternatives of surgical intervention discussed and she would like to proceed. We will proceed with left hip bipolar hemiarthroplasty. Consent was signed and she will be taken to the OR at its earliest availability. 03/02/18 13:21 Objective: Vital Signs Temp Pulse Resp BP Pulse Ox 36.7 C 80 16 142/79 H 97 03/02/18 11:45 03/02/18 11:45 03/02/18 11:45 03/02/18 11:45 03/02/18 11:45 03/01/18 03/02/18 03/03/18 05:59 05:59 05:59 Intake Total 1000 Balance 1000 PT 13.5 SEC (12.0-15.0) 03/02/18 09:00 INR 1.01 (0.83-1.16) 03/02/18 09:00 ICD10 Worksheet Patient Problems: Problems Problem Status Onset Fracture of femoral neck, left, closed Acute Constipation Acute Hypoxia Acute
--- NOTE | 2018-03-02 14:03 | CPEKG ---
Test Reason : OPEN Blood Pressure : / mmHG Vent. Rate : 076 BPM Atrial Rate : 076 BPM P-R Int : 143 ms QRS Dur : 087 ms QT Int : 398 ms P-R-T Axes : 071 058 062 degrees QTc Int : 448 ms Sinus rhythm Low voltage, extremity leads Confirmed by Soy Fragoso ([id number]) on 03/02/2018 2:03:09 PM Referred By: Confirmed By:Soy Fragoso
[2018-03-02] MEDS ORDERED: BUPIVACAINE/EPI 0.5% 30 ML SDV ONE (14:25)
[2018-03-02] MEDS ORDERED: ceFAZolin 1 GM/5 ML SYR ONE (14:26)
[2018-03-02] MEDS ORDERED: CEFAZOLIN 2 GM/DEXTROSE/100 ML BAG IV ONE (14:56)
[2018-03-02] MEDS ORDERED: HYDROmorphONE/DILAUDID 2 MG/ML INJ ONE (14:56)
--- NOTE | 2018-03-02 15:13 | PDANEPAE ---
ANE History of Present Illness L hip ANE Past Medical History - Pulmonary History Hx COPD: Yes Hx Oxygen in Use at Home: Yes O2 in Use at Home (L/minute): 2 Hx Sleep Apnea: No - Endocrine History Hx Diabetes: No ANE Review of Systems Review of Systems: - Exercise capacity Exercise capacity: <4 METS ANE Patient History - Allergies Allergies/Adverse Reactions: No Known Allergies Allergy (Verified 07/08/17 10:30) - Home Medications Home medications: home medication list seen and reviewed Home Medications: Aspirin EC [Aspirin EC 81 mg (*)] 81 mg PO DAILY@12 04/14/17 [Last Taken ] Sertraline HCl [Zoloft 100mg (*)] 100 mg PO HS 04/14/17 [Last Taken 03/01/18] buPROPion XL [Wellbutrin 150mg XL] 150 mg PO DAILY 06/28/17 [Last Taken 03/02/18 ] Acetaminophen [Tylenol 325mg (*)] 650 mg PO DAILY 07/08/17 [Last Taken 03/02/18] Acetaminophen [Tylenol 325mg (*)] 650 mg PO Q4HRS PRN 07/08/17 [Last Taken Unknown] Budesonide/Formoterol 160/4.5 [Symbicort 160-4.5 Mcg Inh (*)] 1 puffs IH BID PRN 07/08/17 [Last Taken Unknown] Carboxymethylcellulose 1% [Refresh Celluvisc (*)] 1 drop EACHEYE Q4HRS PRN 07/08 [Last Taken Unknown] Cholecalciferol Vit D3 [Vitamin D3 (*)] 5,000 units PO DAILY@12 07/08/17 [Last Taken 03/01/18] Docusate Sodium [Colace 100 MG (*)] 100 mg PO HS 07/08/17 [Last Taken 03/01/18] Herbals/Supplements -Info Only 1 ea PO DAILY 07/08/17 [Last Taken Unknown] Ondansetron HCl [Zofran] 4 mg PO Q8HRS PRN 07/08/17 [Last Taken Unknown] Sodium Chloride [[place] Saline] 1 can NS DAILY PRN 07/08/17 [Last Taken Unknown] Vayacog 1 each PO DAILY 07/08/17 [Last Taken 03/02/18] Metoprolol Succinate Xr [Toprol Xl 25 mg (*)] 25 mg PO DAILY 03/02/18 [Last Taken 03/02/18] amLODIPine BESYLATE [Norvasc 10 mg (*)] 10 mg PO DAILY 03/02/18 [Last Taken ] - NPO status NPO Since - Liquids (Date): 03/02/18 NPO Since - Liquids (Time): 09:30 NPO Since - Solids (Date): 03/01/18 NPO Since - Solids (Time): 17:30 - Anes Hx Anes Hx: no prior problems - Smoking Hx Smoking Status: Never smoked - Family Anes Hx Family Anes Hx: none ANE Labs/Vital Signs - Labs Result Diagrams: 03/02/18 09:00 03/02/18 09:00 - Vital Signs Vital Signs: reviewed preoperatively; see RN documention for details Blood Pressure: 142/79 Heart Rate: 80 Respiratory Rate: 16 O2 Sat (%): 97 Height: 160.02 cm Weight: 45.359 kg ANE Physical Exam - Airway Neck exam: FROM Mallampati Score: Class 2 Mouth exam: normal dental/mouth exam - Pulmonary Pulmonary: no respiratory distress - Cardiovascular Cardiovascular: regular rate and rhythym - ASA Status ASA Status: III ANE Anesthesia Plan Anesthesia Plan: GA w LMA (will attempt spinal if pt can tolerate positioning), spinal
[2018-03-02] MEDS ORDERED: BUPIVACAINE 0.75% 10 ML SDV ONE (15:19)
[2018-03-02] MEDS ORDERED: BUPIVACAINE/DEXTROSE 7.5MG/ML 2 ML SPINAL AMP SP ONE (15:20)
[2018-03-02] MEDS ORDERED: POLYETHYLENE GLYCOL 3350 17 GM PKT PO PRN (15:27)
[2018-03-02] MEDS ORDERED: MAGNESIUM HYDROXIDE 30 ML UDCUP PO PRN (15:27)
[2018-03-02] MEDS ORDERED: BISACODYL 10 MG SUPP PR PRN (15:27)
[2018-03-02] MEDS ORDERED: LACTULOSE 20 GM/30 ML UDCUP PO PRN (15:27)
--- NOTE | 2018-03-02 15:32 | PDGENHP ---
History and Physical - Chief Complaint Acute hip pain - History of Present Illness Primary care provider: Dr. Harriet Dang HPI: 82-year-old female presents with acute hip pain located in the left lateral hip, characterized as sharp, with associated, precipitating mechanical fall. The patient reports that she had been ambulating to the bathroom, and she lost her balance, resulting in a traumatic fall, landing on her left hip as well as her right knee. She experienced immediate pain in both of the aforementioned areas and was unable to ambulate. She was down for approximately 10-15 minutes while staff responded to the scene at the [facility]. She was subsequently transferred to [facility] and was identified as having a left hip fracture. Her onset of her fall was on the morning of presentation, duration of pain was intermittent thereafter, exacerbated by moving her left lower extremity, alleviated by resting and receiving pain medication en route. She otherwise denies any precipitating chest pain, palpitations, infectious symptoms. Of note, the patient has a combination of [facility] private duty support every day all day (with the exception of overnight), as well as recent enrollment in [facility] hospice. History Information - Allergies/Home Medication List Allergies/Adverse Reactions: No Known Allergies Allergy (Verified 07/08/17 10:30) Home Medications: Aspirin EC [Aspirin EC 81 mg (*)] 81 mg PO DAILY@12 04/14/17 [Last Taken ] Sertraline HCl [Zoloft 100mg (*)] 100 mg PO HS 04/14/17 [Last Taken 03/01/18] buPROPion XL [Wellbutrin 150mg XL] 150 mg PO DAILY 06/28/17 [Last Taken 03/02/18 ] Acetaminophen [Tylenol 325mg (*)] 650 mg PO DAILY 07/08/17 [Last Taken 03/02/18] Acetaminophen [Tylenol 325mg (*)] 650 mg PO Q4HRS PRN 07/08/17 [Last Taken Unknown] Budesonide/Formoterol 160/4.5 [Symbicort 160-4.5 Mcg Inh (*)] 1 puffs IH BID PRN 07/08/17 [Last Taken Unknown] Carboxymethylcellulose 1% [Refresh Celluvisc (*)] 1 drop EACHEYE Q4HRS PRN 07/08 [Last Taken Unknown] Cholecalciferol Vit D3 [Vitamin D3 (*)] 5,000 units PO DAILY@12 07/08/17 [Last Taken 03/01/18] Docusate Sodium [Colace 100 MG (*)] 100 mg PO HS 07/08/17 [Last Taken 03/01/18] Herbals/Supplements -Info Only 1 ea PO DAILY 07/08/17 [Last Taken Unknown] Ondansetron HCl [Zofran] 4 mg PO Q8HRS PRN 07/08/17 [Last Taken Unknown] Sodium Chloride [[place] Saline] 1 can NS DAILY PRN 07/08/17 [Last Taken Unknown] Vayacog 1 each PO DAILY 07/08/17 [Last Taken 03/02/18] Metoprolol Succinate Xr [Toprol Xl 25 mg (*)] 25 mg PO DAILY 03/02/18 [Last Taken 03/02/18] amLODIPine BESYLATE [Norvasc 10 mg (*)] 10 mg PO DAILY 03/02/18 [Last Taken ] I have personally reviewed and updated: family history, medical history, social history, surgical history - Past Medical History hypertension Additional medical history: Depression. Anxiety. Insomnia. COPD. Malnutrition, treated with CBD/THC to increase appetite - Surgical History Additional surgical history: - Family History Additional family history: Both parents of alcoholism - Social History Smoking Status: Never smoked Alcohol Use: None Drug Use: None Additional social history: Resides at assisted living in [facility], has [facility] private duty Review of Systems Review of Systems: ROS: 10pt was reviewed & negative except for what was stated in HPI & below Muscolosketal: Reports: other (Left hip pain, right knee pain, mechanical fall) Physical Exam Physical Exam: Temp Pulse Resp BP Pulse Ox 36.7 C 80 16 142/79 H 97 03/02/18 11:45 03/02/18 15:13 03/02/18 15:13 03/02/18 15:13 03/02/18 15:13 Constitutional: no apparent distress, appears nourished, not in pain Eyes: PERRL, anicteric sclera, EOMI Ears, Nose, Mouth, Throat: moist mucous membranes, hearing normal, ears appear normal, no oral mucosal ulcers Cardiovascular: regular rate and rhythym, no murmur, rub, or gallop, No edema Respiratory: no respiratory distress, no rales or rhonchi, clear to auscultation Gastrointestinal: normoactive bowel sounds, soft, non-tender abdomen, no palpable masses, No distension Genitourinary: no bladder fullness, no bladder tenderness Skin: other (No ecchymosis or erythema over left hip) Musculoskeletal: other (Shortened and externally rotated left lower extremity with very mild tenderness elicited in the left groin, no effusion over the right or left knee, full range of motion right hip and right knee with flexion and extension) Neurologic: AAOx3, sensation intact bilaterally, No facial droop Psychiatric: interacting appropriately, not anxious, not encephalopathic, thought process linear Lab Data & Imaging Review 03/02/18 09:00 03/02/18 09:00 WBC 14.04 10^3/uL (3.80-9.50) H 03/02/18 09:00 RBC 4.60 10^6/uL (4.18-5.33) 03/02/18 09:00 Hgb 14.5 g/dL (12.6-16.3) 03/02/18 09:00 Hct 42.5 % (38.0-47.0) 03/02/18 09:00 MCV 92.4 fL (81.5-99.8) 03/02/18 09:00 MCH 31.5 pg (27.9-34.1) 03/02/18 09:00 MCHC 34.1 g/dL (32.4-36.7) 03/02/18 09:00 RDW 13.5 % (11.5-15.2) 03/02/18 09:00 Plt Count 330 10^3/uL (150-400) 03/02/18 09:00 MPV 8.7 fL (8.7-11.7) 03/02/18 09:00 Neut % (Auto) 89.4 % (39.3-74.2) H 03/02/18 09:00 Lymph % (Auto) 4.1 % (15.0-45.0) L 03/02/18 09:00 [place] % (Auto) 5.1 % (4.5-13.0) 03/02/18 09:00 Eos % (Auto) 0.0 % (0.6-7.6) L 03/02/18 09:00 Baso % (Auto) 0.2 % (0.3-1.7) L 03/02/18 09:00 Nucleat RBC Rel Count 0.0 % (0.0-0.2) 03/02/18 09:00 Absolute Neuts (auto) 12.55 10^3/uL (1.70-6.50) H 03/02/18 09:00 Absolute Lymphs (auto) 0.58 10^3/uL (1.00-3.00) L 03/02/18 09:00 Absolute Monos (auto) 0.72 10^3/uL (0.30-0.80) 03/02/18 09:00 Absolute Eos (auto) 0.00 10^3/uL (0.03-0.40) L 03/02/18 09:00 Absolute Basos (auto) 0.03 10^3/uL (0.02-0.10) 03/02/18 09:00 Absolute Nucleated RBC 0.00 10^3/uL (0-0.01) 03/02/18 09:00 Immature Gran % 1.2 % (0.0-1.1) H 03/02/18 09:00 Immature Gran # 0.17 10^3/uL (0.00-0.10) H 03/02/18 09:00 RBC/WBC/PLT Morphology TNP 03/02/18 09:00 Platelet Estimate TNP 03/02/18 09:00 PT 13.5 SEC (12.0-15.0) 03/02/18 09:00 INR 1.01 (0.83-1.16) 03/02/18 09:00 APTT 26.5 SEC (23.0-38.0) 03/02/18 09:00 Sodium 135 mEq/L (135-145) 03/02/18 09:00 Potassium 4.2 mEq/L (3.3-5.0) 03/02/18 09:00 Chloride 96 mEq/L (97-110) L 03/02/18 09:00 Carbon Dioxide 31 mEq/l (22-31) 03/02/18 09:00 Anion Gap 8 mEq/L (6-14) 03/02/18 09:00 BUN 25 mg/dL (7-23) H 03/02/18 09:00 Creatinine 0.5 mg/dL (0.6-1.0) L 03/02/18 09:00 Estimated GFR > 60 03/02/18 09:00 Glucose 128 mg/dL (70-100) H 03/02/18 09:00 Calcium 9.6 mg/dL (8.5-10.4) 03/02/18 09:00 Visualized and Interpreted Chest x-ray results: Yes Chest X-Ray results: no infiltrate, other (Age indeterminate compression fracture T6) Visualized and Interpreted EKG results: Yes EKG Interpretation: Positive for: normal sinsus rhythm Assessment & Plan Assessment: 82-year-old female presents with acute left hip fracture status post mechanical fall Plan: 1. Possibly pathologic hip fracture. Present on admission, acute, new problem this provider, further workup indicated. Angulated left femoral neck fracture status post mechanical fall, occurring from standing position, possibly exemplifying underlying osteoporosis -check vitamin-D level, recommend outpatient DEXA scan -RCRI score of 0, conferring is 0.5% perioperative risk of cardiovascular morbidity and/or mortality, rendering the patient low cardiovascular risk for intermediate orthopedic risk surgery, recommend proceeding to surgery without additional cardiac risk stratification at this time -that being said, the patient does have underlying pulmonary disease and she may exhibited protracted weaning from vent and supplemental oxygen -the patient also has a history of malnutrition which has improved somewhat through dietary stimulation but the patient's overall weight is very similar to what it was in July of 2017 and the patient has actually been enrolled with [facility] hospice -given that the patient has fairly independent baseline functional status, I think that it is appropriate for the patient to receive a palliative hip surgery to maintain her current quality of life, and resumption of hospice services after discharge may be useful for any ongoing pain management or further complications which are increasingly prevalent after hip fractures in the elderly -incentive spirometer, bowel regiment -pain medication range, ice as needed -engage with physical and occupational therapy in a.m., she may choose to go to correction facility rehab verses home with increase in her private duty care to 24/7 physical assistance, depending on patient and family wishes 2. Malnutrition. Unclear severity, will get dietary consultation during this hospitalization -reviewed outside records including 07/10/[address] Edgar Montes, characterizing patient's most recent hospitalization as failure to thrive secondary to poor oral intake in the setting of depression, resulting in malnutrition and gait instability, recommended outpatient lens generating machine tender with supervised intake as well as 24/7 care at that time -recommend continuing her home supplements of CBD/THC 3. COPD. No evidence of acute exacerbation, continue monitor pulmonary status 4. Pelvic fracture. Acute, nondisplaced left inferior rami on x-ray, gauge pain and mobility status post hip repair 5. T6 compression fracture. Unclear chronicity, evaluate for back pain tomorrow when she increases mobility and potentially apply Lidoderm patch Diet. NPO, IV fluids, resume diet this evening if safely tolerating p.o. Prophylaxis. High risk patient, SCDs currently, will consider pharmacologic tomorrow if no bleeding Code. Discussed with patient and family, the patient expressed DNR status which is an update from her most recent most form obtained from [facility], her daughter Drake is MD POA Disposition. Anticipated discharge is uncertain this time, anticipated length stay is greater than 48 hr for reasonable medical necessity including acute hip fracture requiring surgical intervention in an elderly patient with high risk comorbid conditions including malnutrition, pelvic fracture. Discussed patient's presentation with Emi Moore, hospitalist provider, she has signed out the patient to me for evaluation.
[2018-03-02] MEDS ORDERED: PROPOFOL 200 MG/20 ML VIAL ONE (15:33)
[2018-03-02] MEDS ORDERED: LIDOCAINE 2% 100 MG/5 ML SYR ONE (15:33)
[2018-03-02] MEDS ORDERED: ONDANSETRON 4 MG/2 ML VIAL ONE (15:33)
[2018-03-02] MEDS ORDERED: DEXAMETHASONE 4 MG/ML VIAL ONE (15:33)
[2018-03-02] MEDS ORDERED: fentaNYL 100 MCG/2 ML INJ ONE (15:33)
[2018-03-02] MEDS ORDERED: fentaNYL 100 MCG/2 ML INJ IVP PRN (16:10)
[2018-03-02] MEDS ORDERED: oxyCODONE IR 5 MG TAB PO PRN (16:10)
[2018-03-02] MEDS ORDERED: HYDROmorphONE/DILAUDID 2 MG/ML INJ IVP PRN (16:10)
[2018-03-02] MEDS ORDERED: NALOXONE HCL 0.4 MG/ML INJ IVP PRN (16:10)
[2018-03-02] MEDS ORDERED: ALBUTEROL 3 ML DEYVIAL IH PRN (16:10)
[2018-03-02] MEDS ORDERED: LABETALOL HCL 5 MG/ML 20 ML MDV IVP PRN (16:10)
[2018-03-02] MEDS ORDERED: HYDROCODONE/APAP 5/325 TAB PO PRN (16:10)
[2018-03-02] MEDS ORDERED: DEXAMETHASONE 4 MG/ML VIAL IVP PRN (16:10)
[2018-03-02] MEDS ORDERED: ACETAMINOPHEN 500 MG TAB PO PRN (16:10)
--- NOTE | 2018-03-02 16:10 | POSTANESTH ---
Post Anesthetic Evaluation Cardiovascular Status: Similar to Pre-Op Cond Respiratory Status: Similar to Pre-op Cond. Level of Consciousness/Mental Status: Can Participate in Eval, Moderately Sleepy Pain Control: Adequate, Prn Tx Ordered Nausea/Vomiting Control: Adequate, Prn Tx Ordered Complications Possibly Related to Anesthesia: None Noted
[2018-03-02] MEDS ORDERED: ePHEDrine SULFATE 25 MG/5 ML SYR ONE (16:14)
[2018-03-02] MEDS ORDERED: ceFAZolin 2 GM/DEXTROSE 100 ML IV ONE (16:35)
[2018-03-02] MEDS ORDERED: TEMAZEPAM 15 MG CAP PO PRN (16:36)
[2018-03-02] MEDS ORDERED: DIPHENOXYLATE/ATROPINE LOMOTIL 1 TAB PO PRN (16:36)
[2018-03-02] MEDS ORDERED: METOCLOPRAMIDE 10 MG/2 ML VIAL IVP PRN (16:36)
[2018-03-02] MEDS ORDERED: CYCLOBENZAPRINE 10 MG TAB PO PRN (16:36)
[2018-03-02] MEDS ORDERED: diphenhydrAMINE 25 MG CAP PO PRN (16:36)
[2018-03-02] MEDS ORDERED: PROMETHAZINE HCL 25 MG/ML INJ IVP PRN (16:36)
--- NOTE | 2018-03-02 16:36 | POSTOPPROG ---
Post Op Note Date of Operation: 03/02/18 Surgeon: Joaquin Tabor Supervisor Maintenance And Custodians: tess dickey Anesthesia: GET(General Endotracheal) Pre-op Diagnosis: Left femoral neck fracture Post-op Diagnosis: same Procedure: LT bipolar hemiarthroplasty Findings: displaced femoral neck fx Inf/Abcess present in the surg proc area at time of surgery?: No EBL: 50-100 Complications: none
[2018-03-02] MEDS: LR 1,000 ML IV SCH (17:31)
[2018-03-02] MEDS: SENNOSIDES/DOCUSATE SODIUM TAB PO SCH (23:37)
[2018-03-02] MEDS: FAMOTIDINE 20 MG TAB PO SCH (23:37)
[2018-03-03] MEDS: ACETAMINOPHEN 325 MG TAB PO PRN ×2 (00:48→22:49)
[2018-03-03] MEDS: ceFAZolin 2 GM/DEXTROSE 100 ML IV SCH ×2 (00:48→07:53)
--- NOTE | 2018-03-03 05:04 | GOP ---
DATE OF OPERATION: 03/02/2018 SURGEON: Joaquin Tabor MD MUSIC ENGINEER: Corona Georges, DOCUMENT MANAGER, [facility]. ANESTHESIA: General. ANESTHESIOLOGIST: Dr. Shay. PREOPERATIVE DIAGNOSIS: Left femoral neck fracture. POSTOPERATIVE DIAGNOSIS: Left femoral neck fracture. PROCEDURE PERFORMED: Left bipolar hemiarthroplasty. FINDINGS: DESCRIPTION OF PROCEDURE: After appropriate informed consent was obtained, patient taken to the oper ating room, placed supine on the operating table. Time-out was performed. Patient was identified, c orrect site was identified, matched with radiographs available in the room. She received 2 g Ancef p reoperatively. Dr. Shay attempted a spinal anesthetic, but due to the hip fracture it was very u ncomfortable to lie on that side, so we opted to go with a general endotracheal tube anesthesia. Once that was completed, we then were able to position her on the right side with the left hip up. T he left hip was prepped and draped in the usual sterile fashion. All bony prominences were well padd ed on the peg board. I made a standard posterior incision. Bleeding was controlled with electrocaut eleazar. The hip was externally rotated slightly and the hip external rotators were excised, tagged for later repair. Capsule was elevated from the femoral neck fracture. Head was easily removed, it mark ured a size 42. We trialed both the 42 and a 43, 43 gave us better fit within the acetabulum. I the n used an oscillating saw to freshen the femoral neck cut, broached the femoral canal with a box oste otome, and then broached up to a size 3. This gave good rotational stability and filled the canal. We then trialed the 3 stem with a 43 outer diameter bipolar cup, which gave good stability, restorati on of leg lengths. Trial implants were removed. The wound was irrigated. Final implants were impla nted. The hip was reduced a final time. Again, leg lengths were equal, good stability of the hip. The wound was irrigated. External rotators were repaired back to the greater trochanter. Superficia l layers closed with 2-0 Vicryl. The deeper layers were repaired with 0 Vicryl. Skin was closed wit h mayo. I instilled 20 mL of 0.5% Marcaine with epinephrine around the incision. Sterile occlusi ve dressing was applied. Patient was awakened from anesthesia, taken to the recovery room in satisfa ctory condition. There were no immediate intraoperative complications. Thiago Georges's assistance wa s required throughout the entire case. IMPLANTS USED: An Accolate II from [place], size 3 femoral stem; 26, +0 head; 43 bipolar component. COMPLICATIONS: None. DRAINS: None. HISTORY: The patient is an 82-year-old female, who fell earlier today, was brought to the emergency department. X-ray showed a displaced femoral neck fracture. She was admitted to the hospitalist and brought to the operating room this afternoon for definitive fixation of her fracture. /[id number]/MODL
[2018-03-03 05:09] LABS: PLATELET COUNT 253 10^3/uL (150-400)
[2018-03-03] MEDS: SENNOSIDES/DOCUSATE SODIUM TAB PO SCH ×2 (08:44→20:20)
[2018-03-03] MEDS: FAMOTIDINE 20 MG TAB PO SCH ×2 (08:44→20:21)
[2018-03-03] MEDS: HYDROmorphONE/DILAUDID 2 MG TAB PO PRN ×2 (08:45→20:21)
[2018-03-03] MEDS ORDERED: CARBOXYMETHYLCELLULOSE 1% 0.4 ML DROPERETTE EACHEYE PRN (09:15)
[2018-03-03] MEDS ORDERED: BUDESONIDE/FORMOTEROL 160/4.5 60 PUFFS/MDI IH PRN (09:15)
[2018-03-03] MEDS ORDERED: Herbals/Supplements -Info Only PO SCH (09:30)
--- NOTE | 2018-03-03 09:44 | ASMTCMCOM ---
CM Note CM Note Notes: 03/03/2018 Case Management Note Reviewed chart. Pt admitted after mechanical fall with acute left hip fracture. Surgery on 03/02. Confirmed with Quinn at [facility] that pt was on hospice prior to admission. Previously pt had been using [facility] home care in addition to support from behavioral health RN. Pt receives unskilled support from [employer] in addition to supports from the [facility]. Quinn to consult with daughter Drake [phone] ([facility]) to ascertain discharge needs from [facility]. Faxed referral to [facility] and [facility] via [employer]. Awaiting recommendations from PT and OT evals. Case Management d/c poc: to be determined. Case Management to follow. Date Signed: 03/03/2018 09:43 AM Electronically Signed By:Yadi Dowd RN
[2018-03-03] MEDS: METOPROLOL SUCCINATE XR 25 MG TAB PO SCH (11:17)
[2018-03-03] MEDS: CHOLECALCIFEROL VIT D3 1,000 UNITS TAB PO SCH (11:17)
[2018-03-03] MEDS: buPROPion XL 150 MG TAB PO SCH (11:18)
[2018-03-03] MEDS: ACETAMINOPHEN 325 MG TAB PO SCH (11:18)
[2018-03-03] MEDS: LR 1,000 ML IV SCH (13:22)
--- NOTE | 2018-03-03 14:05 | SOAPPROG ---
SOAP Progress Note Assessment/Plan: Assessment: Zee is a pleasant 82 year old female POD#1 s/p Left hip bipolar hemiarthroplasty. PE: Dressing is clean and dry. Minimal pain with gentle ROM of the hip. DF/PF of foot intact. NV intact LLE Plan: WBAT LLE. Posterior hip precautions x 6 weeks. PT/OT. Plan for SNF placement. 03/03/18 14:03 Objective: Vital Signs Temp Pulse Resp BP Pulse Ox 36.8 C 93 14 110/61 95 03/03/18 12:00 03/03/18 12:00 03/03/18 12:00 03/03/18 12:00 03/03/18 12:00 Laboratory Results 03/03/18 04:55 03/03/18 04:55 03/02/18 03/03/18 03/04/18 05:59 05:59 05:59 Intake Total 1816 Output Total 800 Balance 1016 PT 13.5 SEC (12.0-15.0) 03/02/18 09:00 INR 1.01 (0.83-1.16) 03/02/18 09:00 ICD10 Worksheet Patient Problems: Problems Problem Status Onset Fracture of femoral neck, left, closed Acute Constipation Acute Hypoxia Acute
--- NOTE | 2018-03-03 14:51 | PDMN ---
Medical Necessity Medical necessity: Pt meets IP criteria per MD and [facility] S-600; est los > 2 mn for eval and tx of L hip fx, pelvic fx, and malnutrition s/p fall; requiring L hemiarthroplasty, pain management, dietary consult, IVF and therapies. Comorbid advanced age and COPD
--- NOTE | 2018-03-03 15:54 | ASMTCMCOM ---
CM Note CM Note Notes: Family requests referral to [facility], they can accept and Madyson with admissions on site to meet with family. CM to follow. Date Signed: 03/03/2018 03:53 PM Electronically Signed By:CHRIS Cody
[2018-03-03] MEDS: VAYACOG PO SCH (17:13)
[2018-03-03] MEDS: ENOXAPARIN 40 MG/0.4 ML SYR SC SCH (17:25)
[2018-03-03] MEDS: [UNRECOGNIZED DRUG - OTHER] PO SCH (18:45)
--- NOTE | 2018-03-03 19:39 | HOSPPROG ---
Hospitalist Progress Note Assessment/Plan: Assessment: 82-year-old female presents with acute left hip fracture status post mechanical fall Plan: 1. Acute hip fracture. Present on admission, left hip, POD#[address] Tabor -WBAT -ruled out vit D deficiency w/ normal D/Ca/Phos labs -counseled patient re: pain mgmt, encouraged PO dilaudid tonight for sustained pain relief, IV for breakthrough, attempt to find balanced Rx schedule in preparation for rehab -IS -bowel regimen -counseled patient/family re: rehab options, coordinated w/ case mgmt for [employer] rep to meet w/ family 2. Malnutrition with underweight BMI 17.7. Unclear severity, will get dietary consultation during this hospitalization -recommend continuing her home supplements 3. COPD w/ chronic hypoxic respiratory failure. No evidence of acute exacerbation, uses supp o2 at baseline 4. Pelvic fracture. Acute, nondisplaced left inferior rami on x-ray, gauge pain and mobility status post hip repair 5. T6 compression fracture. Unclear chronicity, monitor for any back pain 6. Acute urinary retention. 2/2 opiates/anaesthesia/immobility, ongoing bladder scan monitoring (straight cath for > 600ml), counseled patient Diet. Regular, private duty aids to asst ordering Prophylaxis. Start lovenox 40 Code. Discussed with patient and family, the patient expressed DNR status which is an update from her most recent most form obtained from [facility], her daughter Drake is POJair Disposition. ADD 03/05 pending stabilization of above. Subjective: pain w/ therapy/movement LLE, requiring physical assist Objective: Vital Signs Temp Pulse Resp BP Pulse Ox 37.2 C 94 14 126/67 H 95 03/03/18 16:00 03/03/18 16:00 03/03/18 16:00 03/03/18 16:00 03/03/18 16:00 Laboratory Results 03/03/18 04:55 03/03/18 04:55 03/02/18 03/03/18 03/04/18 05:59 05:59 05:59 Intake Total 1816 Output Total 800 200 Balance 1016 -200 PT 13.5 SEC (12.0-15.0) 03/02/18 09:00 INR 1.01 (0.83-1.16) 03/02/18 09:00 - Time Spent With Patient Time Spent with Patient: greater than 35 minutes Time Spent with Patient: Greater than 35 minutes spent on this patients care, greater than 50% of time spent counseling, educating, and coordinating care regarding the above mentioned plan. - Physical Exam Constitutional: no apparent distress, appears nourished, uncomfortable, other ( thin, underweight appearing) Cardiovascular: regular rate and rhythym, no murmur, rub, or gallop, No edema Respiratory: no respiratory distress, no rales or rhonchi, clear to auscultation Gastrointestinal: normoactive bowel sounds, no palpable masses, distension (mild ), No tenderness Genitourinary: other (full bladder, no tenderness) Skin: other (no ecchymoses L hip) Musculoskeletal: other (painful flexion L hip, mild tenderness lateral aspect) Neurologic: AAOx3, sensation intact bilaterally Psychiatric: interacting appropriately, not anxious, not encephalopathic, thought process linear ICD10 Worksheet Patient Problems: Problems Problem Status Onset Constipation Acute Hypoxia Acute Fracture of femoral neck, left, closed Acute
[2018-03-03] MEDS: SERTRALINE HCL 100 MG TAB PO SCH (20:20)
[2018-03-03] MEDS: VIT D3 VIT K PO SCH (20:27)
[2018-03-03] MEDS: HOPS PO SCH (20:27)
[2018-03-03] MEDS: BERBERINE PO SCH (20:27)
[2018-03-03] MEDS: [UNRECOGNIZED DRUG - OTHER] PO SCH (20:28)
[2018-03-04] MEDS: METOPROLOL SUCCINATE XR 25 MG TAB PO SCH (08:20)
[2018-03-04] MEDS: buPROPion XL 150 MG TAB PO SCH (08:21)
[2018-03-04] MEDS: FAMOTIDINE 20 MG TAB PO SCH ×2 (08:21→20:13)
[2018-03-04] MEDS: ACETAMINOPHEN 325 MG TAB PO SCH (08:21)
[2018-03-04] MEDS: ENOXAPARIN 40 MG/0.4 ML SYR SC SCH (08:22)
[2018-03-04] MEDS: SENNOSIDES/DOCUSATE SODIUM TAB PO SCH ×2 (08:31→20:12)
[2018-03-04] MEDS: VIT D3 VIT K PO SCH ×2 (08:33→20:13)
[2018-03-04] MEDS: HOPS PO SCH ×2 (08:33→20:13)
[2018-03-04] MEDS: BERBERINE PO SCH ×2 (08:33→20:13)
[2018-03-04] MEDS: VAYACOG PO SCH (08:34)
[2018-03-04] MEDS: [UNRECOGNIZED DRUG - OTHER] PO SCH (08:35)
[2018-03-04] MEDS ORDERED: SODIUM CL NASAL GEL 14.1 GM TUBE TP PRN (09:00)
[2018-03-04] MEDS ORDERED: traMADol 50 MG TAB PO PRN ×2 (12:46→19:07)
[2018-03-04] MEDS: ACETAMINOPHEN 325 MG TAB PO PRN (12:49)
[2018-03-04] MEDS: CHOLECALCIFEROL VIT D3 1,000 UNITS TAB PO SCH (12:50)
--- NOTE | 2018-03-04 13:35 | SOAPPROG ---
SOAP Progress Note Assessment/Plan: Assessment: Zee is a pleasant 82 year old female POD#1 s/p Left hip bipolar hemiarthroplasty. She is doing well with some moderate pain at the hip. She has been up with PT. Apparently she has been a little confused on the Dilaudid. PE: Dressing removed and incision is clean and dry with surrounding ecchymosis. Minimal pain with gentle ROM of the hip. DF/PF of foot intact. NV intact LLE Plan: Dressing changed today and new DSD placed. WBAT LLE. Posterior hip precautions x 6 weeks. PT/OT. Plan for SNF placement tomorrow. Follow up outpatient in our office in 10-14 days for repeat evaluation and staple removal. 03/03/18 14:03 03/04/18 13:31 Objective: Vital Signs Temp Pulse Resp BP Pulse Ox 36.7 C 79 16 103/52 L 92 03/04/18 11:38 03/04/18 11:38 03/04/18 11:38 03/04/18 13:02 03/04/18 11:38 Laboratory Results 03/04/18 05:25 03/03/18 04:55 03/03/18 03/04/18 03/05/18 05:59 05:59 05:59 Intake Total 1816 300 500 Output Total 800 450 Balance 1016 -150 500 PT 13.5 SEC (12.0-15.0) 03/02/18 09:00 INR 1.01 (0.83-1.16) 03/02/18 09:00 ICD10 Worksheet Patient Problems: Problems Problem Status Onset Fracture of femoral neck, left, closed Acute Constipation Acute Hypoxia Acute
--- NOTE | 2018-03-04 19:11 | HOSPPROG ---
Hospitalist Progress Note Assessment/Plan: Assessment: 82-year-old female presents with acute left hip fracture status post mechanical fall Plan: 1. Acute hip fracture. Present on admission, left hip, POD#[address] Tabor -WBAT -ruled out vit D deficiency w/ normal D/Ca/Phos labs -IS -bowel regimen -adjusted pain Rx from dilaudid to tramadol given poor tolerance o/n -f/u w/ Dr. Tabor in office 10-14 days 2. Malnutrition with underweight BMI 17.7. Unclear severity, will get dietary consultation during this hospitalization -recommend continuing her home supplements 3. COPD w/ chronic hypoxic respiratory failure. No evidence of acute exacerbation, uses supp o2 at baseline 4. Pelvic fracture. Acute, nondisplaced left inferior rami on x-ray, gauge pain and mobility status post hip repair -counseled family on anticipated non-operative healing 5. T6 compression fracture. Unclear chronicity, monitor for any back pain 6. Acute urinary retention. 2/2 opiates/anaesthesia/immobility, resolved 7. HTN. Chronic, reduced amlodipine 5mg in AM, cont low dose metop succ Diet. Regular, private duty aids to asst ordering Prophylaxis. Started lovenox 40 Code. Discussed with patient and family, the patient expressed DNR status which is an update from her most recent most form obtained from [facility], her daughter Drake is POJair Disposition. ADD 03/05 pending stabilization of above. Subjective: confused o/n and lethargic this AM, resolved now Objective: Vital Signs Temp Pulse Resp BP Pulse Ox 36.6 C 95 17 103/55 L 84 L 03/04/18 15:37 03/04/18 15:37 03/04/18 15:37 03/04/18 15:37 03/04/18 17:06 Laboratory Results 03/04/18 05:25 03/03/18 04:55 03/03/18 03/04/18 03/05/18 05:59 05:59 05:59 Intake Total 1816 300 980 Output Total 800 450 50 Balance 1016 -150 930 PT 13.5 SEC (12.0-15.0) 03/02/18 09:00 INR 1.01 (0.83-1.16) 03/02/18 09:00 - Physical Exam Constitutional: no apparent distress, appears nourished, not in pain, No uncomfortable Cardiovascular: regular rate and rhythym, no murmur, rub, or gallop, No edema Respiratory: no respiratory distress, no rales or rhonchi, clear to auscultation Gastrointestinal: normoactive bowel sounds, soft, non-tender abdomen, No distension Skin: other (no erythema/induration/fluctuance of soft tissue L hip, mild tenderness) Psychiatric: interacting appropriately, not anxious, not encephalopathic, thought process linear ICD10 Worksheet Patient Problems: Problems Problem Status Onset Constipation Acute Hypoxia Acute Fracture of femoral neck, left, closed Acute
[2018-03-04] MEDS: SERTRALINE HCL 100 MG TAB PO SCH (20:12)
[2018-03-04] MEDS: [UNRECOGNIZED DRUG - OTHER] PO SCH (20:13)
[2018-03-05] MEDS ORDERED: amLODIPine BESYLATE 5 MG TAB PO SCH (09:00)
[2018-03-05] MEDS: ENOXAPARIN 40 MG/0.4 ML SYR SC SCH (09:14)
[2018-03-05] MEDS: buPROPion XL 150 MG TAB PO SCH (09:15)
[2018-03-05] MEDS: ACETAMINOPHEN 325 MG TAB PO SCH (09:15)
[2018-03-05] MEDS: FAMOTIDINE 20 MG TAB PO SCH (09:15)
[2018-03-05] MEDS: METOPROLOL SUCCINATE XR 25 MG TAB PO SCH (09:16)
[2018-03-05] MEDS: SENNOSIDES/DOCUSATE SODIUM TAB PO SCH (09:16)
[2018-03-05] MEDS: [UNRECOGNIZED DRUG - OTHER] PO SCH (09:16)
[2018-03-05] MEDS: VAYACOG PO SCH (09:17)
[2018-03-05] MEDS: HOPS PO SCH (09:17)
[2018-03-05] MEDS: VIT D3 VIT K PO SCH (09:17)
[2018-03-05] MEDS: BERBERINE PO SCH (09:17)
[2018-03-05 12:01] VITALS: BP 102/58
[2018-03-05] MEDS: CHOLECALCIFEROL VIT D3 1,000 UNITS TAB PO SCH (13:09)
--- NOTE | 2018-03-05 13:11 | PDIAF ---
- Diagnosis Diagnosis: Acute L hip fracture s/p fall Code Status: Do Not Resuscitate - Medication Management Discharge Medications: Medications to Continue on Transfer Sertraline HCl [Zoloft 100mg (*)] 100 mg PO HS 04/14/17 [Last Taken 03/01/18] buPROPion XL [Wellbutrin 150mg XL] 150 mg PO DAILY 06/28/17 [Last Taken 03/02/18 ] Acetaminophen [Tylenol 325mg (*)] 650 mg PO DAILY 07/08/17 [Last Taken 03/02/18] Acetaminophen [Tylenol 325mg (*)] 650 mg PO Q4HRS PRN 07/08/17 [Last Taken Unknown] Budesonide/Formoterol 160/4.5 [Symbicort 160-4.5 Mcg Inh (*)] 1 puffs IH BID PRN 07/08/17 [Last Taken Unknown] Carboxymethylcellulose 1% [Refresh Celluvisc (*)] 1 drop EACHEYE Q4HRS PRN 07/08 [Last Taken Unknown] Cholecalciferol Vit D3 [Vitamin D3 (*)] 5,000 units PO DAILY@12 07/08/17 [Last Taken 03/01/18] Herbals/Supplements -Info Only 1 ea PO DAILY 07/08/17 [Last Taken Unknown] Ondansetron HCl [Zofran] 4 mg PO Q8HRS PRN 07/08/17 [Last Taken Unknown] Sodium Chloride [[place] Saline] 1 can NS DAILY PRN 07/08/17 [Last Taken Unknown] Vayacog 1 each PO DAILY 07/08/17 [Last Taken 03/02/18] Metoprolol Succinate Xr [Toprol Xl 25 mg (*)] 25 mg PO DAILY 03/02/18 [Last Taken 03/02/18] Hematin Anemia Guard 1 tab PO MOWEFR@21 03/03/18 [Last Taken Unknown] Pyrrole 1 cap PO DAILY 03/03/18 [Last Taken Unknown] Vit D3-Vit K/Berberine/Hops [OSTERA TABLET] 1 each PO BID 03/03/18 [Last Taken Unknown] Enoxaparin [Lovenox 40 MG (*)] 40 mg SC DAILY syr 03/05/18 [Last Taken Unknown] Famotidine [Pepcid 20 MG (*)] 20 mg PO BID tab 03/05/18 [Last Taken Unknown] Polyethylene Glycol 3350 [Miralax 17 gm (*)] 17 gm PO DAILY PRN pkt 03/05/18 [ Last Taken Unknown] Sennosides/Docusate Sodium [Senokot-S] 1 tab PO BID tab 03/05/18 [Last Taken Unknown] amLODIPine BESYLATE [Norvasc 5 mg (*)] 5 mg PO DAILY tab 03/05/18 [Last Taken Unknown] celeCOXIB [Celebrex (*)] 200 mg PO DAILY cap 03/05/18 [Last Taken Unknown] traMADol [Ultram 50 mg (*)] 25 - 50 mg PO Q6HRS PRN tab 03/05/18 [Last Taken Unknown] Senior Payroll Specialist Antibiotics: NA Additional Medication Instructions: Please continue lovenox 40mg daily until , then stop; please hold Aspirin until AFTER lovenox has been stopped, then resume; please STOP celebrex on 03/17/18 unless instructed to continue by Dr. Tabor Discharge Medications: Refer to the Discharge Home Medication list for PRN reason. PICC Care - Routine: N/A - Orders Services needed: Registered Nurse, Certified Home Health Specialist, Physical Therapy, Occupational Therapy Isolation Type: None Oxygen: 2LPM continuous Diet Recommendation: no restrictions on diet Weigh Patient: weekly Silver: Not applicable Wound Care Instructions: keep wound C/D/I Sutures/Outlook Site: L hip, to be removed at Dr. Tabor's office Activity/Weight Bearing Restrictions: WBAT LLE, posterior hip precautions x 6 weeks from surgery Equipment: walker Additional Instructions: 1. Patient will follow up with Dr. Tabor or Darlin Alford PA-C 10-14 days (Mar. ) post op for radiograph and staple removal. Office number is [phone], please call to schedule appointment. 2. Please hold Aspirin while on Lovenox, and resume your Aspirin 81mg PO daily after Lovenox has been discontinued 3. Please consult with Drs. Gonzalez and Alton regarding Stratos dosing and frequency - Labs/Radiology BMP Date: 03/15/18 Call or Fax Lab and Imaging Results to: Dr. Dang - Follow Up Care Current Providers and Referrals: Joaquin Tabor MD [Medical Doctor] - (please call to schedule around 03/15/18) Harriet Dang MD [Primary Care Provider] - 3 days of d/c SNF/Rehab
--- NOTE | 2018-03-05 16:34 | ASMTLACE ---
LACE Length of stay for Answers: 4-6 days current admission Acuity / Level of Answers: Yes Care: Did the patient have an inpatient admission? Comorbidities - select Answers: Chronic pulmonary disease all that apply Other Notes: HTN # of Emergency department Answers: 1-2 visits in the last 6 months Social determinants Answers: Mental health diagnosis (anxiety, depression, pers onality disorders, etc.) Score: 14 Date Signed: 03/05/2018 04:34 PM Electronically Signed By:CHRIS Cody
--- NOTE | 2018-03-05 16:34 | ASMTCMCOM ---
CM Note CM Note Notes: Pt medically stable for d/c to [facility]. Gladys in admissions arranged transport. Voicemail left for dghtr updating about d/c. Orders sent in [employer]. MAURI Watkins to call report. Date Signed: 03/05/2018 04:33 PM Electronically Signed By:CHRIS Cody
--- NOTE | 2018-03-05 16:41 | ASDISCHSUM ---
Discharge Information Plan Status:SNF Medically Cleared to Leave: Discharge Date:03/05/2018 04:32 PM D/C Disposition:Retirement Facility ADT D/C Disposition:Retirement Facility Projected Discharge Date:03/06/2018 11:00 AM Transportation at D/C:Wheelchair Van Discharge Delay Reason: Follow-Up Date:03/06/2018 11:00 AM Discharge Slot: Final Diagnosis: Placement Information Referral Type:*Home Health Care Services Referral ID:[id number] Provider Name: Address 1: Phone Number: Address 2: Fax Number: City: Selection Factors: State: Referral Type:Assisted Living Residence Referral ID:[id number] Provider Name: Address 1: Phone Number: Address 2: Fax Number: City: Selection Factors: State: Referral Type:*Usp/SNF Referral ID:[id number] Provider Name:[facility] Address 1:[address] Address 2: City:[place] Selection Factors: State:[place] Patient Contact Information Contact Name:PERICO Relationship:Daughter Address:[address] Work Phone: [facility]:[place] Alternate Phone: [facility]/Zip Code:[place] [address] Email: Financial Information Financial Class:Medicare Primary Plan Desc:MEDICARE INPATIENT Primary Plan Number:[id number] Secondary Plan Desc:[facility] Secondary Plan Number:[id number] Assessment Information LACE LACE Length of stay for Answers: 4-6 days current admission Acuity / Level of Answers: Yes Care: Did the patient have an inpatient admission? Comorbidities - select Answers: Chronic pulmonary disease all that apply Other Notes: HTN # of Emergency department Answers: 1-2 visits in the last 6 months Social determinants Answers: Mental health diagnosis (anxiety, depression, pers onality disorders, etc.) Score: 14 Date Signed: 03/05/2018 04:34 PM Electronically Signed By:CHRIS Cody [facility] CM Progress Note CM Note CM Note Notes: 03/03/2018 Case Management Note Reviewed chart. Pt admitted after mechanical fall with acute left hip fracture. Surgery on 03/02. Confirmed with Quinn at [facility] that pt was on hospice prior to admission. Previously pt had been using [facility] home care in addition to support from behavioral health RN. Pt receives unskilled support from [facility] in addition to supports from the [facility]. Quinn to consult with daughter Drake [phone] ([facility]) to ascertain discharge needs from [facility]. Faxed referral to [facility] and [facility] [employer] via [employer]. Awaiting recommendations from PT and OT alexsandra. Case Management d/c poc: to be determined. Case Management to follow. Date Signed: 03/03/2018 09:43 AM Electronically Signed By:Yadi Dowd RN [facility] CM Progress Note CM Note CM Note Notes: Family requests referral to [facility], they can accept and Madyson with admissions on site to meet with family. CM to follow. Date Signed: 03/03/2018 03:53 PM Electronically Signed By:CHRIS Cody [facility] CM Progress Note CM Note CM Note Notes: Pt medically stable for d/c to [facility]. Aguileraia in admissions arranged transport. Voicemail left for dghtr updating about d/c. Orders sent in [employer]. MAURI Watkins to call report. Date Signed: 03/05/2018 04:33 PM Electronically Signed By:CHRIS Cody Intervention Information Intervention Type:*IM-Signed Date of Service:03/05/2018 02:43 PM Patient Type:Inpatient Staff Member:Joo Mobley Hours: Discipline: Severity: Comment:
--- NOTE | 2018-03-05 19:46 | PDDCSUM ---
Discharge Summary Discharge Summary: DISCHARGE SUMMARY FOLLOW-UP ITEMS: Outpatient hip x-rays and follow-up at Dr. Tabor office DATE OF ADMISSION: 03/02/2018 DATE OF DISCHARGE: 03/05/2018 DISCHARGE DIAGNOSES: 1. Acute left hip fracture present on admission 2. Acute left inferior pubic rami fracture 3. Malnutrition with underweight BMI of 17.7 4. COPD with chronic hypoxic respiratory failure 5. T6 compression fracture 6. Acute urinary retention 7. Chronic hypertension CONSULTATIONS: Orthopedics by Dr. Tabor PROCEDURES / IMAGING: Pelvic x-ray demonstrating good alignment of hip prosthesis, ongoing nondisplaced left inferior pubic rami fracture CHIEF COMPLAINT: Acute fall with left hip pain SUBJECTIVE: Patient is feeling well at time discharge, her pain has been well managed with p.r.n. Tramadol PHYSICAL EXAM ON DISCHARGE: Systolic blood pressure 100-120, heart rate 80-100, afebrile 9, satting well on 2 L nasal cannula, bowel sounds are present, lungs are clear to auscultation bilaterally, alert awake oriented x3 HOSPITAL COURSE BY PROBLEM: The patient presented with a mechanical fall resulting in acute left hip fracture as well as acute left inferior pubic rami fracture. X-rays also demonstrated T6 compression fracture of unclear chronicity, but the patient did not experience any back pain. The patient was seen in consultation by Orthopedics and she underwent left hip arthroplasty on the evening of 03/02. The surgery was uncomplicated and the patient is weight-bearing as tolerated with posterior hip precautions for the next 6 weeks. We ruled out vitamin-D deficiency with normal vitamin-D/calcium/phosphorus labs. The patient did experience some postoperative acute urinary retention secondary to opiates, anesthesia, immobility, but this had resolved prior to discharge, the patient was moving her bowels successfully. The patient did experience some acute confusion secondary to low-dose Dilaudid, and we adjusted her pain medication to Tylenol, scheduled Celebrex, and tramadol for breakthrough pain. She did not experience any subsequent cognitive changes on this medication regiment. The patient does have a long history of malnutrition and underweight BMI, and she received dietary consultation during this hospitalization as well as ongoing dietary support and encouragement from her outpatient care providers. The patient will continue to receive this support moving into the rehab facility , and her family will continue to provide her with her daily supplements as desired. The patient will be on Lovenox 40 daily for DVT prophylaxis for the next 3-4 weeks, at the discretion of Dr. Joaquin Tabor. Once this medication is discontinued, I would recommend initiating the patient's home dosage of aspirin. Of note, the patient's home dosage of amlodipine was reduced to 5 mg daily, and this can be up titrated in the outpatient setting as the patient's mobility increases if it is necessary. DISCHARGE MEDICATIONS: Please see official discharge medication reconciliation sheet in chart , amlodipine reduced to 5 mg daily, aspirin held, Lovenox 40 initiated, tramadol 25-50 mg as needed, Celebrex 200 mg daily scheduled, Tylenol as needed, plus scheduled in the morning. DISCHARGE INSTRUCTIONS: Please follow up at Dr. Tabor office in 10-14 days, and with her primary care provider after discharge from [facility]. TIME SPENT: Greater than 30 minutes were spent on direct patient care, as well as discharge planning and preparation.
== END 2018-03-05 16:32 | DRG 956 ==
LOC: EDUNIT# → F3N 17:16
PROVIDERS: ADMIT Internal Medicine; ATTEND Internal Medicine
PROC: 0SRS0JZ Replacement of Left Hip Joint, Femoral Surface with Synthetic Substitute, Open Approach (ICD-10-PCS; principal; 2018-03-02 14:45)
DX: S72.002A Fracture of unspecified part of neck of left femur, initial encounter for closed fracture (principal); S32.592A Other specified fracture of left pubis, initial encounter for closed fracture; E46 Unspecified protein-calorie malnutrition; Z68.1 Body mass index [BMI] 19.9 or less, adult; J96.11 Chronic respiratory failure with hypoxia; M48.54XA Collapsed vertebra, not elsewhere classified, thoracic region, initial encounter for fracture; J44.9 Chronic obstructive pulmonary disease, unspecified; R33.0 Drug induced retention of urine; I10 Essential (primary) hypertension; T50.7X5A Adverse effect of analeptics and opioid receptor antagonists, initial encounter; W01.0XXA Fall on same level from slipping, tripping and stumbling without subsequent striking against object, initial encounter; Y92.121 Bathroom in nursing home as the place of occurrence of the external cause; Z66 Do not resuscitate
CPT/HCPCS: 96374; 97162-GP; 97166-GO; 97530-GP; 97535-GO; G8978-GP-CL; G8979-GP-CK; G8987-GO-CL; G8988-GO-CJ; J0690; J1100; J1170; J1650; J2001; J2270; J2405; J2704; J3010

== ENCOUNTER 2018-06-01 11:34 | Emergency (ER) | payer OTHER, BC ==
[2018-06-01] MEDS ORDERED: NS 500 ML IV ONE (12:42)
--- NOTE | 2018-06-01 12:42 | EDPHY ---
H & P Time Seen by Provider: 06/01/18 12:30 HPI/ROS: CHIEF COMPLAINT: Hypertension HISTORY OF PRESENT ILLNESS: Patient brought in by ambulance and she tells me it was because her blood pressure was high at home. She has no symptoms and feels well. She is here with 1 of her caregivers. However on a physician order sheet which arrives with the patient there is a note from her primary care practice that says that she has several days of vertigo and staying in bed with failure to thrive and poor hydration and appetite the. The request is that she be evaluated for being malnourished and to "rule out UTI." The patient denies urinary symptoms. Says she is having decreased oral intake. She says she does not have vertigo or dizziness now. REVIEW OF SYSTEMS: Eye: no change in vision ENT: no sore throat Cardiac: no chest pain or syncope Pulmonary: no cough or SOB Abdomen: no vomiting, diarrhea, abdominal pain Musculoskeletal: no back pain or neck pain Skin: no rash Neuro: no headache Constitutional: no fever : No dysuria or hematuria, normal urination. A comprehensive 10 point review of systems is otherwise negative aside from elements mentioned in the history of present illness. PAST MEDICAL HISTORY: Includes chronic malnutrition, depression, hypertension, anxiety, asthma Social history: Lives at the [facility] General Appearance: Alert and conversant, cooperative. Eyes: No scleral icterus. ENT, Mouth: Slightly dry mucous membranes. Respiratory: Normal respiratory effort, breath sounds equal, lungs are clear to auscultation. No rales. Cardiovascular: Regular rate and rhythm. Gastrointestinal: Abdomen is soft and non tender. Neurological: Alert, face symmetric, normal motor and sensory in extremities. Normal [id number] and no pronator drift. Speech fluent. Normally conversant. Skin: Warm and dry, no rashes. Musculoskeletal: No peripheral edema. Psychiatric: Not agitated. Emergency Department course/MDM: Patient does not present with signs or symptoms of acute hypertensive emergency. Her blood pressure is normal in the emergency department. She will be checked as requested by her primary care physician for electrolyte abnormality and urinary tract infection, 500 cc normal saline given. 1435: Results discussed with patient and daughter, will encourage increased oral intake both food and water, treatment for pyuria discussed and consented. Smoking Status: Never smoked Constitutional: Initial Vital Signs Temperature (C) 36.7 C 06/01/18 11:49 Heart Rate 75 06/01/18 11:49 Respiratory Rate 18 06/01/18 11:49 Blood Pressure 115/79 06/01/18 11:49 O2 Sat (%) 93 06/01/18 11:49 O2 Delivery Mode Room Air Allergies/Adverse Reactions: No Known Allergies Allergy (Verified 06/01/18 11:49) Home Medications: Medication Instructions Recorded Sertraline HCl [Zoloft 100mg (*)] 100 mg PO HS 04/14/17 buPROPion XL [Wellbutrin 150mg XL] 150 mg PO DAILY 06/28/17 Acetaminophen [Tylenol 325mg (*)] 650 mg PO DAILY 07/08/17 Acetaminophen [Tylenol 325mg (*)] 650 mg PO Q4HRS PRN 07/08/17 Budesonide/Formoterol 160/4.5 1 puffs IH BID PRN 07/08/17 [Symbicort 160-4.5 Mcg Inh (*)] Carboxymethylcellulose 1% [Refresh 1 drop EACHEYE Q4HRS PRN 07/08/17 Celluvisc (*)] Cholecalciferol Vit D3 [Vitamin D3 5,000 units PO DAILY@12 07/08/17 (*)] Herbals/Supplements -Info Only 1 ea PO DAILY 07/08/17 Ondansetron HCl [Zofran] 4 mg PO Q8HRS PRN 07/08/17 Sodium Chloride [[place] Saline] 1 can NS DAILY PRN 07/08/17 Vayacog 1 each PO DAILY 07/08/17 Metoprolol Succinate Xr [Toprol Xl 25 mg PO DAILY 03/02/18 25 mg (*)] Hematin Anemia Guard 1 tab PO MOWEFR@21 03/03/18 Pyrrole 1 cap PO DAILY 03/03/18 Vit D3-Vit K/Berberine/Hops 1 each PO BID 03/03/18 [OSTERA TABLET] Enoxaparin [Lovenox 40 MG (*)] 40 mg SC DAILY syr 03/05/18 Famotidine [Pepcid 20 MG (*)] 20 mg PO BID tab 03/05/18 Polyethylene Glycol 3350 [Miralax 17 gm PO DAILY PRN pkt 03/05/18 17 gm (*)] Sennosides/Docusate Sodium 1 tab PO BID tab 03/05/18 [Senokot-S] amLODIPine BESYLATE [Norvasc 5 mg 5 mg PO DAILY tab 03/05/18 (*)] celeCOXIB [Celebrex (*)] 200 mg PO DAILY cap 03/05/18 traMADol [Ultram 50 mg (*)] 25 - 50 mg PO Q6HRS PRN tab 03/05/18 Nitrofurantoin Macrobid [Macrobid] 100 mg PO Q12 #14 cap 06/01/18 Medical Decision Making - Data Points Laboratory Results: Laboratory Results 06/01/18 12:56 06/01/18 12:56 06/01/18 06/01/18 06/01/18 13:23 12:56 12:56 WBC 4.55 10^3/uL 10^3/uL (3.80-9.50) RBC 4.77 10^6/uL 10^6/uL (4.18-5.33) Hgb 14.2 g/dL g/dL (12.6-16.3) Hct 44.0 % % (38.0-47.0) MCV 92.2 fL fL (81.5-99.8) MCH 29.8 pg pg (27.9-34.1) MCHC 32.3 g/dL L g/dL (32.4-36.7) RDW 14.6 % % (11.5-15.2) Plt Count 256 10^3/uL 10^3/uL (150-400) MPV 8.7 fL fL (8.7-11.7) Neut % (Auto) 60.1 % % (39.3-74.2) Lymph % (Auto) 24.6 % % (15.0-45.0) [place] % (Auto) 12.1 % % (4.5-13.0) Eos % (Auto) 1.8 % % (0.6-7.6) Baso % (Auto) 0.7 % % (0.3-1.7) Nucleat RBC Rel Count 0.0 % % (0.0-0.2) Absolute Neuts (auto) 2.74 10^3/uL 10^3/uL (1.70-6.50) Absolute Lymphs (auto) 1.12 10^3/uL 10^3/uL (1.00-3.00) Absolute Monos (auto) 0.55 10^3/uL 10^3/uL (0.30-0.80) Absolute Eos (auto) 0.08 10^3/uL 10^3/uL (0.03-0.40) Absolute Basos (auto) 0.03 10^3/uL 10^3/uL (0.02-0.10) Absolute Nucleated RBC 0.00 10^3/uL 10^3/uL (0-0.01) Immature Gran % 0.7 % % (0.0-1.1) Immature Gran # 0.03 10^3/uL 10^3/uL (0.00-0.10) Sodium 137 mEq/L mEq/L (135-145) Potassium 4.5 mEq/L mEq/L (3.5-5.2) Chloride 106 mEq/L mEq/L (97-110) Carbon Dioxide 27 mEq/l mEq/l (22-31) Anion Gap 4 mEq/L L mEq/L (6-14) BUN 37 mg/dL H mg/dL (7-23) Creatinine 0.7 mg/dL mg/dL (0.6-1.0) Estimated GFR > 60 Glucose 97 mg/dL mg/dL (70-100) Calcium 9.5 mg/dL mg/dL (8.5-10.4) Urine Color TANIA Urine Appearance HAZY Urine pH 5.0 (5.0-7.5) Ur Specific [place] 1.034 H (1.002-1.030) Urine Protein 1+ H (NEGATIVE) Urine Ketones TRACE H (NEGATIVE) Urine Blood NEGATIVE (NEGATIVE) Urine Nitrate NEGATIVE (NEGATIVE) Urine Bilirubin NEGATIVE (NEGATIVE) Urine Urobilinogen NEGATIVE EU EU (0.2-1.0) Ur Leukocyte Esterase 1+ H (NEGATIVE) Urine RBC 1-3 /hpf /hpf (0-3) Urine WBC 5-10 /hpf H /hpf (0-3) Ur Epithelial Cells TRACE /lpf /lpf (NONE-1+) Calcium Oxalate Crystal PRESENT /hpf /hpf (NONE-1+) Urine Mucus 2+ /lpf H /lpf (NONE-1+) Urine Glucose NEGATIVE (NEGATIVE) Medications Given: Discontinued Medications Sodium Chloride (Ns) 500 mls @ 1,000 mls/hr IV EDNOW ONE PRN Reason: Protocol Stop: 06/01/18 13:11 Last Admin: 06/01/18 12:55 Dose: 500 mls Departure - Departure Disposition: Home, Routine, Self-Care Clinical Impression: Urinary tract infection Hypertension Qualifiers: Hypertension type: unspecified Qualified Code(s): I10 - Essential (primary) hypertension Condition: Good Instructions: Urinary Tract Infection in Women (DC), Hypertension (ED) Referrals: Harriet Dang MD [Primary Care Provider] - As per Instructions Prescriptions: Nitrofurantoin Macrobid [Macrobid] 100 mg PO Q12 #14 cap
[2018-06-01 13:10] LABS: PLATELET COUNT 256 10^3/uL (150-400)
[2018-06-01 14:32] VITALS: BP 121/68
== END 2018-06-01 14:48 | disposition home or self-care (01) ==
LOC: EDUNIT#
DX: N39.0 Urinary tract infection, site not specified (principal); I10 Essential (primary) hypertension

== ENCOUNTER 2018-07-03 19:09 | Emergency (ER) | payer OTHER, BC ==
--- NOTE | 2018-07-03 19:03 | EDPHY ---
H & P Time Seen by Provider: 07/03/18 19:09 Constitutional: Initial Vital Signs Temperature (C) 36.7 C 07/03/18 19:12 Heart Rate 91 07/03/18 19:12 Respiratory Rate 18 07/03/18 19:12 Blood Pressure 144/89 H 07/03/18 19:12 O2 Sat (%) 93 07/03/18 19:12 O2 Delivery Mode Nasal Cannula O2 (L/minute) 2 Allergies/Adverse Reactions: No Known Allergies Allergy (Verified 06/01/18 11:49) Home Medications: Medication Instructions Recorded Sertraline HCl [Zoloft 100mg (*)] 100 mg PO HS 04/14/17 buPROPion XL [Wellbutrin 150mg XL] 150 mg PO DAILY 06/28/17 Ondansetron HCl [Zofran] 4 mg PO Q8HRS PRN 07/08/17 Vayacog 1 each PO DAILY 07/08/17 Metoprolol Succinate Xr [Toprol Xl 25 mg PO DAILY 03/02/18 25 mg (*)] Vit D3-Vit K/Berberine/Hops 1 each PO BID 03/03/18 [OSTERA TABLET] Sennosides/Docusate Sodium 1 tab PO BID tab 03/05/18 [Senokot-S] amLODIPine BESYLATE [Norvasc 5 mg 5 mg PO DAILY tab 03/05/18 (*)] celeCOXIB [Celebrex (*)] 200 mg PO DAILY cap 03/05/18 traMADol [Ultram 50 mg (*)] 25 - 50 mg PO Q6HRS PRN tab 03/05/18 ACETAMINOPHEN 07/03/18 OSTERA TABLET 07/03/18 Polyethylene Glycol 3350 07/03/18 Medical Decision Making ED Course/Re-evaluation: CHIEF COMPLAINT: N/V/D HISTORY OF PRESENT ILLNESS: The patient is an 82 y/o female with a history of hypertension arriving via EMS from the [facility] complaining of nausea, vomiting, and diarrhea since 06:00, about 13 hours ago. She has been able to drink some water, but not eat anything. Staff called for transport out of concern for dehydration. She denies associated abdominal pain. There are several other residents at the [facility] ill with similar symptoms secondary to Norovirus. Staff also mentioned the patient was evaluated by [facility] yesterday and was disimpacted. She has not been given any recent laxatives as far as staff is aware of. REVIEW OF SYSTEMS: A comprehensive 10 system review of systems is otherwise negative aside from elements mentioned in the history of present illness and medical decision making. PHYSICAL EXAM: HR, BP, O2 Sat, RR. Temp noted General Appearance: Alert, well hydrated, appropriate, and non-toxic appearing. Head: Atraumatic without scalp tenderness or obvious injury Eyes: Pupils equal, round, reactive to light and accommodation, EOMI, no trauma , no injection. Nose: Atraumatic, no rhinorrhea, clear. Throat: There is no erythema or exudates, no lesions, normal tonsils, mucus membranes mildly dry. Neck: Supple, nontender, no lymphadenopathy. Respiratory: No retractions, no distress, no wheezes, and no accessory muscle use. Lungs are clear to auscultation bilaterally. Cardiovascular: Regular rate and rhythm, no murmurs, rubs, or gallops. Good capillary refill all extremities. Gastrointestinal: Abdomen is soft, nontender, non-distended, no masses, no rebound, no guarding, no peritoneal signs. Musculoskeletal: Normal active ROM of all extremities, atraumatic. Neurological: Alert, appropriate, and interactive. The patient has non-focal cranial nerves, motor, sensory, and cerebellar exam. Skin: No rashes, good turgor, no nodules on palpation. Past medical history: Hypertension, asthma, anorexia, depression, anxiety Past surgical history: Noncontributory Family history: Noncontributory Social history: Lives at the [facility]. . Retired. Prior medical records reviewed including ED visit 06/01/18 for hypertension. DIFFERENTIAL DIAGNOSIS: The differential diagnosis for the patient's nausea and vomiting included but was not limited to gastroenteritis, gastritis, appendicitis, and medication side effect. MEDICAL DECISION MAKING: This is an 82 y/o female who presents with a 13-hour history of recurrent nausea , vomiting, and diarrhea. There are several residents at her facility ill with Norovirus. Mucous membranes are mildly dry, but exam is otherwise unremarkable. She is afebrile. Plan for IV, ISTAT, and symptomatic management. 1L IV NS and 4mg IV Zofran ordered. BUN 40, creatinine 0.7 indicating prerenal dehydration. Patient care signed out to Dr. Chowdary at shift change pending adequate rehydration and successful PO challenge. (Juan Blanco) 2: 1 re-examination at this time this patient is resting comfortably. She was signed out to me at 8:00 p.m. She received a L fluid here for dehydration, she was able to p. O. Challenge without any difficulty. She has no further vomiting or diarrhea here in the emergency room. Patient requesting to go back home to the [facility]. She would like to go home go to sleep. She was able to tolerate p.o. 2 large glasses of water. She did receive Zofran and a L fluid. She is feeling much better. Vital signs are stable. She denies any complaints. She is requesting discharge. (Isael Chowdary) - Data Points Laboratory Results: 07/03/18 19:36 POC Hgb 17.3 gm/dL H gm/dL (12.6-16.3) POC Hct 51 % H % (38-47) POC Sodium 142 mEq/L mEq/L (135-145) POC Potassium 4.1 mEq/L mEq/L (3.3-5.0) POC Chloride 100 mEq/L mEq/L (97-110) POC Total CO2 28 mEq/L mEq/L (22-31) POC BUN 40 mg/dL H mg/dL (7-23) POC Creatinine 0.7 mg/dL mg/dL (0.6-1.0) POC Glucose 143 mg/dL H mg/dL (70-100) Medications Given: Discontinued Medications Sodium Chloride (Ns) 1,000 mls @ 0 mls/hr IV EDNOW ONE; Wide Open PRN Reason: Protocol Stop: 07/03/18 19:31 Last Admin: 07/03/18 19:36 Dose: 1,000 mls Ondansetron HCl (Zofran) 4 mg IVP EDNOW ONE Stop: 07/03/18 19:31 Last Admin: 07/03/18 19:36 Dose: 4 mg Point of Care Test Results: Chemistry 07/03/18 19:36 POC Sodium 142 mEq/L mEq/L (135-145) POC Potassium 4.1 mEq/L mEq/L (3.3-5.0) POC Chloride 100 mEq/L mEq/L (97-110) POC Total CO2 28 mEq/L mEq/L (22-31) POC BUN 40 mg/dL H mg/dL (7-23) POC Creatinine 0.7 mg/dL mg/dL (0.6-1.0) POC Glucose 143 mg/dL H mg/dL (70-100) ISTAT H&H 07/03/18 19:36 POC Hgb 17.3 gm/dL H gm/dL (12.6-16.3) POC Hct 51 % H % (38-47) Departure - Departure Disposition: Home, Routine, Self-Care Clinical Impression: Vomiting and diarrhea, Dehydration Condition: Good Instructions: Dehydration (ED), Acute Nausea and Vomiting (ED) Additional Instructions: 1. Return to the emergency room if you develop worsening symptoms includes worsening vomiting, fever, diarrhea. 2. Return if worse. Referrals: Patient,NotPresent [Primary Care Provider] - As per Instructions Report Scribed for: Juan Blanco Report Scribed by: Jocy Portillo Date of Report: 07/03/18 Time of Report: 19:16
[2018-07-03] MEDS ORDERED: ONDANSETRON 4 MG/2 ML VIAL IVP ONE (19:30)
[2018-07-03] MEDS ORDERED: NS 1,000 ML IV ONE (19:30)
[2018-07-03 21:42] VITALS: BP 141/83
== END 2018-07-03 21:40 | disposition home or self-care (01) ==
LOC: EDUNIT# → EDBD
DX: R11.10 Vomiting, unspecified (principal); R19.7 Diarrhea, unspecified; E86.9 Volume depletion, unspecified; I10 Essential (primary) hypertension
CPT/HCPCS: 96361; 96374; 99284; J2405; 82435-PO; 82565-PO; 82947-PO; 84132-PO; 84295-PO; 84520-PO; 85014-ER